=== PATIENT | male | born 1965 | race Caucasian/White ===

== ENCOUNTER 2017-07-27 07:31 | Day surgery (SDC) | payer OTHER ==
[~2017-07-27] VITALS: Ht 180.3 cm; Wt 142.5 kg
[~2017-07-27 07:31] MED LIST: ABAC300; ALPR.5 PO; AMLO10 PO; AMLO5; AMLODIPINE; AMOX500 PO; ANCEF 1 GM1 GM/50 ML IV; ASPI81CH PO; ASPIRIN; ATEN25 PO; ATEN50 PO; CEPH250A PO; CEPH500 PO; CLON.1 PO; CVS DISPOSABLE399 ML; ENEMA BOTTLE1 EACH MC; GABA300 PO; GLIM4 PO; GLYB2.5 PO; GLYBURIDE; GLYCAS PR; HYDACE10B PO; HYDACE5 PO; HYDR1TAB94 PO; IBUP600 PO; INSDET100 SC; INSUASPI; Ipratr-Albuterol3 ML IH; LAVAP17G PO; LISHYD2025 PO; LISI20 PO; LISINOPRIL/HCTZ; LORTAB 5-325 M1 EACH PO; MECLIZINE; MELA3 PO; METF500 PO; METFORMIN; METO50 PO; METO5A PO; METOPROLOL; Milk Of Ma400 MG/5 M PO; NICO21TP TOP; NYST100TC TOP; OLME20 PO; OMEPRAZOLE; Omeprazole20 M1 PO; PENVK500 PO; PRAV20 PO; PRAVASTATIN; PRED10 PO; QUIN5; Rocephin 1g1 G/50 ML IV; SACC250C PO; SITA25T2 PO; SULTRIDS PO; TAMS.4ER PO; UNKNOWN BP MED; Vibramycin100 MG PO
== END 2017-07-27 11:19 | disposition home or self-care (01) ==
LOC: ORSCSDS 07:31
DX: K21.9 Gastro-esophageal reflux disease without esophagitis (principal); K29.70 Gastritis, unspecified, without bleeding; K44.9 Diaphragmatic hernia without obstruction or gangrene; Z12.11 Encounter for screening for malignant neoplasm of colon; K57.30 Diverticulosis of large intestine without perforation or abscess without bleeding; K64.8 Other hemorrhoids; I10 Essential (primary) hypertension; G47.33 Obstructive sleep apnea (adult) (pediatric); F17.210 Nicotine dependence, cigarettes, uncomplicated; E11.9 Type 2 diabetes mellitus without complications; G61.0 Guillain-Barre syndrome; E78.5 Hyperlipidemia, unspecified; E66.01 Morbid (severe) obesity due to excess calories; Z68.41 Body mass index [BMI] 40.0-44.9, adult; Z79.899 Other long term (current) drug therapy; Z79.82 Long term (current) use of aspirin
CPT/HCPCS: 82947; 87070; 88305; 88342; J7120

== ENCOUNTER 2018-09-27 02:50 | Day surgery (SDC) | payer OTHER | END 2018-09-27 23:42 | disposition home or self-care (01) | LOC: WOUND 02:50 | PROC: 0HDMXZZ Extraction of Right Foot Skin, External Approach (ICD-10-PCS; principal; 2018-09-27) | DX: L89.893 Pressure ulcer of other site, stage 3 (principal); L89.892 Pressure ulcer of other site, stage 2; I10 Essential (primary) hypertension; G61.0 Guillain-Barre syndrome; F17.210 Nicotine dependence, cigarettes, uncomplicated; J45.909 Unspecified asthma, uncomplicated; Z86.14 Personal history of Methicillin resistant Staphylococcus aureus infection | CPT/HCPCS: G0463 ==

== ENCOUNTER 2018-10-04 02:51 | Day surgery (SDC) | payer OTHER | END 2018-10-04 22:57 | disposition home or self-care (01) | LOC: WOUND 02:51 | DX: L89.893 Pressure ulcer of other site, stage 3 (principal); E11.21 Type 2 diabetes mellitus with diabetic nephropathy; Z72.0 Tobacco use | CPT/HCPCS: G0463 ==

== ENCOUNTER 2018-10-11 02:20 | Day surgery (SDC) | payer OTHER | END 2018-10-11 23:23 | disposition home or self-care (01) | LOC: WOUND 02:20 | DX: L89.893 Pressure ulcer of other site, stage 3 (principal); E11.21 Type 2 diabetes mellitus with diabetic nephropathy; I10 Essential (primary) hypertension; J45.909 Unspecified asthma, uncomplicated; F17.210 Nicotine dependence, cigarettes, uncomplicated; Z86.19 Personal history of other infectious and parasitic diseases; Z86.14 Personal history of Methicillin resistant Staphylococcus aureus infection | CPT/HCPCS: G0463 ==

== ENCOUNTER 2018-10-18 10:43 | Day surgery (SDC) | payer OTHER | END 2018-10-18 23:13 | disposition home or self-care (01) | LOC: WOUND 10:43 | DX: L89.893 Pressure ulcer of other site, stage 3 (principal); E11.21 Type 2 diabetes mellitus with diabetic nephropathy; I10 Essential (primary) hypertension; J45.909 Unspecified asthma, uncomplicated; F17.210 Nicotine dependence, cigarettes, uncomplicated | CPT/HCPCS: G0463 ==

== ENCOUNTER → 2018-12-13 | Outpatient (CLI) | payer OTHER | END | disposition home or self-care (01) | LOC: PLD 07:32 → LAB SHORT 07:32 | DX: C44.311 Basal cell carcinoma of skin of nose (principal) | CPT/HCPCS: 88305 ==

== ENCOUNTER 2019-03-27 09:31 | Inpatient (IN) | payer OTHER ==
[~2019-03-27] VITALS: Ht 180.3 cm; Wt 127.5 kg
[~2019-03-27 09:31] MED LIST changes: -ALBU2.5V5 INH; -ALBU90OI INH; -ALLO100 PO; -BASAGLAR K100 UNIT/1 SC; -BISA10S PR; -BUSP5 PO; -COLCHICINE0.6 MG PO; -Ceftriaxon2 GM/50 ML IV; -DOCU100 PO; -ENOX40I SC; -FAMO20 PO; -Flonase 0.05% N16 GM; -Flovent Diskus50 MCG; -Glyburide5 MG PO; -HYDMOR2 PO; -MELATONIN5 M1 PO; -METO5A PO; -MILK OF MA400 MG/5 M PO; -NYSTRITC TOP; -Naloxone H0.4 MG/11 IV; -ONDA4ODT MM; -POLYETHYLENE G500 G1 PO; -SENN187 PO; -SLEEP PO; -TAMSULOSIN HCL0.4 M1 PO; -Zantac150 MG PO
[2019-03-27] MEDS ORDERED: AMLO10 PO (09:47)
[2019-03-27 10:33] LABS: BASOPHILS ABSOLUTE AUTO 0.04 K/mm3 (0.00-0.23); BASOPHILS PERCENT AUTO 0 % (0-2); EOSINOPHILS ABSOLUTE AUTO 0.17 K/mm3 (0.00-0.68); EOSINOPHILS PERCENT AUTO 2 % (0-6); Hematocrit 41.4 % (37.0-53.0); Hemoglobin 13.8 g/dL (13.5-17.5); IMMATURE GRAN PERCENT AUTO 1 % (0-1); LYMPHOCYTES ABSOLUTE AUTO 1.02 K/mm3 (0.84-5.20); LYMPHOCYTES PERCENT AUTO 10 % (21-46); MONOCYTES ABSOLUTE AUTO 0.65 K/mm3 (0.16-1.47); MONOCYTES PERCENT AUTO 7 % (4-13); Mean Corpuscular HGB 26.5 pg (26.0-34.0); Mean Corpuscular HGB Conc 33.3 g/dL (31.5-36.5); Mean Corpuscular Volume 80 fL (80-100); Mean Platelet Volume 9.8 fL (9.1-12.4); NEUTROPHILS PERCENT AUTO 80 % (41-73); Platelet Count 239 K/mm3 (150-400); RDW Coefficient Variation 14.2 % (11.7-14.2); RDW Standard Deviation 41.1 fL (35.1-46.3); White Blood Cell Count 9.78 K/mm3 (4.00-11.30)
[2019-03-27 10:46] LABS: International Normalized Ratio 1.04; Prothrombin Time Results 11.1 Sec (9.7-11.5)
[2019-03-27 10:50] LABS: Anion Gap 9 mmol/L (6-16); Blood Urea Nitrogen 24 mg/dL (8-24); Bun/Creatinine Ratio 19.7 (12.0-20.0); CO2, Blood 24 mmol/L (21-32); Calcium, Blood 9.1 mg/dL (8.5-10.1); Chloride, Blood 97 mmol/L (98-108); Creatinine, Blood 1.22 mg/dL (0.60-1.20); Glomerular Filtration Rate >60 (60-); Glucose, Blood 191 mg/dL (70-99); Sodium, Blood 130 mmol/L (136-145)
[2019-03-27 11:27] LABS: Source, Urine Clean Catch
[2019-03-27 11:52] LABS: Bilirubin, Urine Neg (Neg); Blood, Urine Neg (Neg); Glucose Qualitative, Urine 1+ (Neg); Ketones, Urine 1+ (Neg); Leukocyte Esterase, Urine 3+ (Neg); Nitrite, Urine Neg (Neg); Protein, Urine Neg (Neg); Specific Gravity, Urine 1.015 (1.003-1.022); Urobilinogen, Urine NORM (Normal)
[2019-03-27 11:58] LABS: Appearance, Urine Clear (Clear); Color, Urine Yellow (P-Yellow)
[2019-03-27 11:59] LABS: White Blood Cells, Urine 25-50 /hpf (0-5)
[2019-03-27] MEDS ORDERED: BUSP5 PO (12:01)
[2019-03-27] MEDS ORDERED: COLCHICINE0.6 MG PO (12:01)
[2019-03-27 12:02] LABS: Bacteria Few /hpf; Red Blood Cells, Urine 0-2 /hpf (0-2); Squamous Epithelial Cells Few /hpf (Few)
[2019-03-27] MEDS ORDERED: METO5A PO (13:09)
[2019-03-27] MEDS ORDERED: TAMSULOSIN HCL0.4 M1 PO (13:10)
[2019-03-27] MEDS ORDERED: Zantac150 MG PO (13:12)
[2019-03-27] MEDS ORDERED: ALLO100 PO (13:13)
[2019-03-27] MEDS ORDERED: Glyburide5 MG PO (13:15)
[2019-03-27] MEDS ORDERED: ALBU90OI INH (16:09)
[2019-03-27] MEDS ORDERED: ALBU2.5V5 INH (16:09)
[2019-03-27] MEDS ORDERED: FAMO20 PO (16:09)
[2019-03-27] MEDS ORDERED: Flovent Diskus50 MCG (16:10)
[2019-03-27] MEDS ORDERED: NYSTRITC TOP (16:11)
[2019-03-27] MEDS ORDERED: SLEEP PO (16:11)
--- NOTE | 2019-03-27 16:19 | NUR ---
IN TO SEE PATIENT
--- NOTE | 2019-03-27 18:52 | NUR ---
ARRIVES TO FLOOR ABOUT 1530. PIC OF WOUND TAKEN AND MEPILEX USED TO COVER. SAW PATIENT TODAY AND ADVISED PATIENT OF AMPUTATION. PODIATRY TO BE CALLED TOMORROW. WILL PLACE PATIENT NPO AND MAKE RN AWARE FOR POSSIBLE PROCEDURE. ALERT. ORIENTED. PLEASANT. COOPERATIVE. UNLABORED RESPIRATIONS. REPORT TO FLEIPE VU
--- NOTE | 2019-03-28 04:39 | NUR ---
SHIFT SUMMARY ADMITTED FOR OSEOMYELITIS OF 5TH METATARSAL OF RT FOOT. FULL CODE. HOPEFUL PLAN FOR PODIATRY CONSULT/SURGICAL PROCEDURE FOR TODAY. PT HAS BEEN NPO SINCE MIDNIGHT. USES CPAP @ PM. A&O X4. ACHS, TEST HS @ 10 PM, LOW SS. RA DURING DAY. SECONDARY DX FOR UTI. HX: DM2, NEUROPATHY, GUILLAIN-BAR SYNDROME, GOUT, HTN, ASTHMA, BPH, NEUROGENIC BLADDER. BILAT CHRONIC ANKLE BRACES FOR AMBULATION.
[2019-03-28 05:51] LABS: Anion Gap 8 mmol/L (6-16); Blood Urea Nitrogen 26 mg/dL (8-24); Bun/Creatinine Ratio 20.2 (12.0-20.0); CO2, Blood 24 mmol/L (21-32); Calcium, Blood 9.2 mg/dL (8.5-10.1); Chloride, Blood 101 mmol/L (98-108); Creatinine, Blood 1.29 mg/dL (0.60-1.20); Glomerular Filtration Rate >60 (60-); Glucose, Blood 170 mg/dL (70-99); Sodium, Blood 133 mmol/L (136-145)
--- NOTE | 2019-03-28 09:45 | NUR ---
TALKED TO . STS WILL TAKE PATIENT TO OR THIS AFTERNOON. KEEP NPO. OK TO HAVE MORNING MEDS.
--- NOTE | 2019-03-28 11:30 | NUR ---
PER CHANGE SLIDING SCALE TO MEDIUM AND GIVE FOR LUNCH.
--- NOTE | 2019-03-28 13:06 | NUR ---
Upon receiving an admit referral, I visit patient. Patient is lying in bed and alert. Patient immediately tells me his frustration with the ambulance company who was no longer able to take him to his doctor's appointments and now he is fearful that he may have his foot amputated. Once off this topic patient settled down quickly and began to tell me about his Gnosticist matthew and the support system that his faith has. Patient explains about the many medical issues he has throughout his life. Patient states that he has been up most of the night stressing about losing his foot. I listen empathically, normalize patient's experience, reinforce helpful attitudes and practices, recite inspirational scriptures and provide emotional support, pastoral clinical mental health counselor and prayer. Patient responds well and shows signs of increased peace. I will continue to remain available to patient and family.
--- NOTE | 2019-03-28 13:27 | NUR ---
TO OR. IN GOWN. USED URINAL.
--- NOTE | 2019-03-28 13:36 | NUR ---
History, Chart, Medications and Allergies reviewed before start of procedure. Patient confirms NPO status and agrees with scheduled surgery. Lungs clear T/O to Auscultation. Pre-Op teaching done. Pt verbalizes understanding. NO JEWELRY OR PIERCINGS PRESENT AT ADMIT, GLASSES IN PLACE ON PATIENT.
--- NOTE | 2019-03-28 13:48 | NUR ---
IV DOES NOT RUN TO GRAVITY, WILL START NEW IV.
--- NOTE | 2019-03-28 14:18 | NUR ---
TOOK OVER PATIENT CARE, STARTED IV, TOOK PATIENTTO SURGERY.
--- NOTE | 2019-03-28 19:10 | NUR ---
PATIENT BACK TO ROOM ABOUT 1600. ALERT. ORIENTED. RT FOOT WRAPPED IN JASS WRAP WITH NO OBVIOUS DRAINAGE. ADVISED NONWEIGHT BEARING. CBG TAKEN. FOOD GIVEN. GOOD APPETITE. VSWNL. REPORT TO NIGHT RN
--- NOTE | 2019-03-29 00:01 | NUR ---
BEGINNING SHIFT SUMMARY ASSUMED CARE OF PT AT 1900. PT IS ALERT AND ORIENTED X4, PT STATES THAT HIS LOWER EXTREMITES ARE NUMB. HEART SOUNDS REGULAR, LUNG SOUNDS CLEAR, DENIES CP/SOB/DYSPNEA AT THIS TIME. PT R FOOT IS BANDAGED AND IS C/D/I, PT IS NON WEIGHTBEARING ON THE FOOT TILL DOCTOR SEES HIM TOMORROW. PT C/O PAIN IN HIS FOOT, MEDICATED PER EMAR. PT HAS FREQUENT URINATION WITH LITTLE OUTPUT, PT STATES THAT HE FEELS THAT HE IS EMPTYING JUST FINE, IT JUST TAKES HIM A COUPLE TIMES. CALL LIGHT IN REACH, BED IN LOWEST POSTION, WILL CONTINUE TO MONITOR.
--- NOTE | 2019-03-29 04:21 | NUR ---
END SHIFT SUMMARY NO ACUTE CHANGES NOTED T/O THE NIGHT. PT SLEPT MOST OF THE NIGHT EXCEPT TO USE THE URINAL. PT C/O PAIN IN HIS FOOT, MEDICATED PER EMAR. CALL LIGHT IN REACH, BED IN LOWEST POSTION, WILL CONTINUE TO MONITOR UNTIL DAYSHIFT NURSE ARRIVES.
[2019-03-29 05:48] LABS: Anion Gap 9 mmol/L (6-16); Blood Urea Nitrogen 31 mg/dL (8-24); Bun/Creatinine Ratio 23.7 (12.0-20.0); CO2, Blood 22 mmol/L (21-32); Calcium, Blood 9.2 mg/dL (8.5-10.1); Chloride, Blood 101 mmol/L (98-108); Creatinine, Blood 1.31 mg/dL (0.60-1.20); Glomerular Filtration Rate >60 (60-); Glucose, Blood 210 mg/dL (70-99); Potassium, Blood 4.4 mmol/L (3.5-5.5); Sodium, Blood 132 mmol/L (136-145)
[2019-03-29 12:56] LABS: Source, Urine Clean Catch
[2019-03-29 13:07] LABS: Appearance, Urine Clear (Clear); Bilirubin, Urine Neg (Neg); Blood, Urine Neg (Neg); Color, Urine Yellow (P-Yellow); Glucose Qualitative, Urine 3+ (Neg); Ketones, Urine Neg (Neg); Leukocyte Esterase, Urine 1+ (Neg); Nitrite, Urine Neg (Neg); Protein, Urine Neg (Neg); Urobilinogen, Urine NORM (Normal); pH, Urine 6.5 (5.0-8.0)
[2019-03-29 13:16] LABS: Bacteria Rare /hpf; Red Blood Cells, Urine 0-2 /hpf (0-2); Squamous Epithelial Cells Rare /hpf (Few)
[2019-03-29 14:52] LABS: BASOPHILS ABSOLUTE AUTO 0.04 K/mm3 (0.00-0.23); BASOPHILS PERCENT AUTO 0 % (0-2); EOSINOPHILS ABSOLUTE AUTO 0.07 K/mm3 (0.00-0.68); EOSINOPHILS PERCENT AUTO 1 % (0-6); Hematocrit 41.1 % (37.0-53.0); Hemoglobin 13.6 g/dL (13.5-17.5); IMMATURE GRAN ABSOLUTE AUTO 0.09 K/mm3 (0.00-0.10); IMMATURE GRAN PERCENT AUTO 1 % (0-1); LYMPHOCYTES ABSOLUTE AUTO 1.91 K/mm3 (0.84-5.20); LYMPHOCYTES PERCENT AUTO 18 % (21-46); MONOCYTES ABSOLUTE AUTO 0.64 K/mm3 (0.16-1.47); MONOCYTES PERCENT AUTO 6 % (4-13); Mean Corpuscular HGB 26.6 pg (26.0-34.0); Mean Corpuscular HGB Conc 33.1 g/dL (31.5-36.5); Mean Corpuscular Volume 80 fL (80-100); NEUTROPHILS ABSOLUTE AUTO 7.73 K/mm3 (1.96-9.15); NEUTROPHILS PERCENT AUTO 74 % (41-73); Platelet Count 305 K/mm3 (150-400); RDW Coefficient Variation 14.1 % (11.7-14.2); RDW Standard Deviation 40.9 fL (35.1-46.3); Red Blood Cell Count 5.12 M/mm3 (4.30-5.90); White Blood Cell Count 10.48 K/mm3 (4.00-11.30)
--- NOTE | 2019-03-29 18:01 | NUR ---
SHIFT SUMMARY- PT A/O, PLESANT AND COOPERATIVE. PT RECIEVING IV ANTIBIOTICS. PT EATING AND DRINKING WELL. HE WORKED WITH PHYSICAL THERAPY TODAY AND TOLERATED WELL. BLOOD GLUCOSE LEVELS ELEVATED COVERED PER MAR. PT RECIEVING TREATMENT FROM RT.
--- NOTE | 2019-03-29 22:44 | NUR ---
CALL TO HOSPITALIST MED ERROR - FOUR UNITS OF HUMALOG GIVEN INSTEAD OF OREDERED TWO UNITS BY MISTAKE. NOTIFIED DR. MORALES, STATED TO RECHECK BS IN TWO HOURS.
--- NOTE | 2019-03-29 23:09 | NUR ---
BEGINNING SHIFT SUMMARY ASSUMED CARE OF PT AT 1900. PT WAS LYING IN BED WATCHING TV. PT A/O X4, DENIES N/T AT THIS TIME. HEART SOUNDS REGULAR, LUNG SOUNDS DIMINISHED, DENIES SOB AT THIS TIME. PT C/O BURNING WHEN HE TRIES TO URINATE AND NOTHING COMES OUT. FOOT WOUND DRESSING C/D/I. PT C/O PAIN IN THE FOOT, MEDICATED PER EMAR. PT IS CURRENTLY SLEEPING WITH HIS CPAP ON WITH CONTINOUS BIOX. CALL LIGHT IN REACH, BED IN LOWEST POSTION, WILL CONTINUE TO MONITOR.
--- NOTE | 2019-03-30 04:09 | NUR ---
END SHIFT SUMMARY PT AWOKE DURING VITALS WITH EXTREME PAIN IN HIS FOOT, MEDICATED PER EMAR. PT SLEPT MOST OF THE NIGHT. CALL ILGHT IN REACH, BED IN LOWEST POSTION, WILL CONTINUE TO MONITOR UNTIL DAYSHIFT NURSE ARRIVES.
[2019-03-30 05:50] LABS: Anion Gap 8 mmol/L (6-16); Blood Urea Nitrogen 33 mg/dL (8-24); Bun/Creatinine Ratio 25.2 (12.0-20.0); CO2, Blood 25 mmol/L (21-32); Calcium, Blood 9.1 mg/dL (8.5-10.1); Chloride, Blood 102 mmol/L (98-108); Creatinine, Blood 1.31 mg/dL (0.60-1.20); Glomerular Filtration Rate >60 (60-); Glucose, Blood 237 mg/dL (70-99); Potassium, Blood 4.3 mmol/L (3.5-5.5); Sodium, Blood 135 mmol/L (136-145)
--- NOTE | 2019-03-30 18:36 | NUR ---
SHIFT SUMMARY- PT A/O PLESANT AND COOPERATIVE. PT IS EATING AND DRINKING WELL. HE IS USING THE URINAL AT BEDSIDE. PT RECIEVED A BED BATH TODAY. HE IS HAVING SOME PAIN IN THE FOOT AND IS RECIEVING PAIN MEDICATION PER MAR. POSSIBLE DISCHARHGE TO SNF.
--- NOTE | 2019-03-30 23:10 | NUR ---
BEGINNING SHIFT SUMMARY ASSUMED CARE OF PT AT 1900. PT WAS SITTING IN BED WATCHING TV. PT OS ALERT AND ORIENTED, C/O NUMBNESS IN EXTREMITIES, HX GULLIAN BARRE DISEASE. HEART SOUNDS REGULAR, LUNG SOUNDS CLEAR, WEARS CPAP AT NIGHT. PT C/O PAIN IN R FOOT, MEDICATED PER EMAR. PT IS CURRENTLY SLEEPING WITH CPAP ON. CALL LIGHT IN REACH, BED IN LOWEST POSTION, WILL CONTINUE TO MONITOR.
--- NOTE | 2019-03-31 04:36 | NUR ---
END SHIFT SUMMARY NO ACUTE CHANGES NOTED T/O THE NIGHT. PT SLEPT TH/O THE NIGHT UNTIL 0430 WHEN HE AWOKE TO URINATE AND BECAUSE OF THE PAIN IN HIS FOOT. PT IS CURRENTLY BACK TO SLEEP. CALL LIGHT IN REACH, BED IN LOWEST POSTION, WILL CONTINUE TO MONITOR UNTIL DAYSHIFT NURSE ARRIVES.
[2019-03-31 05:52] LABS: Anion Gap 10 mmol/L (6-16); Blood Urea Nitrogen 36 mg/dL (8-24); CO2, Blood 20 mmol/L (21-32); Chloride, Blood 102 mmol/L (98-108); Creatinine, Blood 1.09 mg/dL (0.60-1.20); Glomerular Filtration Rate >60 (60-); Glucose, Blood 284 mg/dL (70-99); Potassium, Blood 4.5 mmol/L (3.5-5.5); Sodium, Blood 132 mmol/L (136-145)
[2019-03-31] MEDS ORDERED: Flonase 0.05% N16 GM (13:33)
[2019-03-31] MEDS ORDERED: BASAGLAR K100 UNIT/1 SC (13:35)
[2019-03-31] MEDS ORDERED: BISA10S PR (13:42)
[2019-03-31] MEDS ORDERED: DOCU100 PO (13:43)
[2019-03-31] MEDS ORDERED: Ceftriaxon2 GM/50 ML IV (13:43)
[2019-03-31] MEDS ORDERED: ENOX40I SC (13:44)
[2019-03-31] MEDS ORDERED: HYDMOR2 PO (13:45)
[2019-03-31] MEDS ORDERED: MILK OF MA400 MG/5 M PO (13:46)
[2019-03-31] MEDS ORDERED: MELATONIN5 M1 PO (13:47)
[2019-03-31] MEDS ORDERED: Naloxone H0.4 MG/11 IV (13:48)
[2019-03-31] MEDS ORDERED: ONDA4ODT MM (13:49)
[2019-03-31] MEDS ORDERED: POLYETHYLENE G500 G1 PO (13:50)
[2019-03-31] MEDS ORDERED: SENN187 PO (13:51)
--- NOTE | 2019-03-31 17:01 | NUR ---
SHIFT SUMMARY PT RESTING QUIETLY ON CPAP DURING SHIFT REPORT, CONT BIOX WNL'S. PER REPORT, PT HAD JUST GONE TO SLEEP AND PT REPORTED LATER THAT HE HAD NOT GOTTEN MUCH SLEEP LAST NIGHT. PT WITH JASS WRAP TO RLE; C/D/I. PER REPORT, PT HAD I&D ON 5TH TOE, PRESENTLY NONWT BEARING ON R FOOT. MEDICATED PER EMAR NEEDED FOR PAIN. USING URINAL AT , VOIDING WELL. DR ODONNELL IN TO SEE PT; D/C ORDERS PLACED. PT TO GO TO FOR REHAB. PT TO RECEIVE IV ABX PER ORDERS AND F/U WITH PODIATRY; DR SCHOFIELD. REPORT CALLED TO LISA VU AT @ 1620. PT MEDICATED FOR PAIN PRIOR TO D/C.
== END 2019-03-31 16:13 | DRG 629 ==
LOC: ER 09:31 → MEDS 13:50
PROVIDERS: Emergency Medicine; Internal Medicine; Podiatrist Foot & Ankle Surgery; ADMIT Internal Medicine Endocrinology, Diabetes & Metabolism
PROC: 3E0V329 Introduction of Other Anti-infective into Bones, Percutaneous Approach (ICD-10-PCS; 2019-03-28)
PROC: 0QBN0ZZ Excision of Right Metatarsal, Open Approach (ICD-10-PCS; principal; 2019-03-28 13:45)
DX: E11.621 Type 2 diabetes mellitus with foot ulcer (principal); M86.171 Other acute osteomyelitis, right ankle and foot; L03.115 Cellulitis of right lower limb; E87.1 Hypo-osmolality and hyponatremia; G61.0 Guillain-Barre syndrome; N13.8 Other obstructive and reflux uropathy; E11.69 Type 2 diabetes mellitus with other specified complication; B95.4 Other streptococcus as the cause of diseases classified elsewhere; B96.89 Other specified bacterial agents as the cause of diseases classified elsewhere; Z79.4 Long term (current) use of insulin; E11.22 Type 2 diabetes mellitus with diabetic chronic kidney disease; I12.9 Hypertensive chronic kidney disease with stage 1 through stage 4 chronic kidney disease, or unspecified chronic kidney disease; N18.3 Chronic kidney disease, stage 3 (moderate); G47.33 Obstructive sleep apnea (adult) (pediatric); M10.9 Gout, unspecified; E66.9 Obesity, unspecified; N40.1 Benign prostatic hyperplasia with lower urinary tract symptoms; R33.8 Other retention of urine; N52.9 Male erectile dysfunction, unspecified; Z68.38 Body mass index [BMI] 38.0-38.9, adult; E11.65 Type 2 diabetes mellitus with hyperglycemia; E11.51 Type 2 diabetes mellitus with diabetic peripheral angiopathy without gangrene
CPT/HCPCS: 36415; 73701; 80048; 81001; 82947; 83605; 85025; 85610; 87040; 87070; 87071; 87075; 87077; 87081; 87086; 87186; 87205; 88304; 94660; 94762; 96361; 96365-59; 96375-59; 97162; 97166; 97530; 99284-25; C1713; J0696; J1100; J1170; J1650; J1815; J1956; J2001; J2250; J2370; J2405; J2543; J2704; J2710; J3010; J7030; J7050; J7120; Q0163; Q9967

== ENCOUNTER → 2019-03-27 | Outpatient (CLI) | payer OTHER ==
[~2019-03-27] MED LIST changes: +ALBU2.5V5 INH; +ALBU90OI INH; +ALLO100 PO; +Augmentin 875-1 EACH PO; +BASAGLAR K100 UNIT/1 SC; +BASAGLAR K100 UNIT/2 SC; +BISA10S PR; +BUSP5 PO; +COLCHICINE0.6 MG PO; +Ceftriaxon2 GM/50 ML IV; +DOCU100 PO; +ENOX40I SC; +FAMO20 PO; +Flonase 0.05% N16 GM; +Flovent Diskus50 MCG; +Glyburide5 MG PO; +HYDMOR2 PO; -INSDET100 SC; -INSUASPI; +MELATONIN5 M1 PO; +METO100 PO; -METO50 PO; +MILK OF MA400 MG/5 M PO; +Metformin HCl1000 MG PO; +NOVOLOG FL100 UNIT/1 SC; +NYSTRITC TOP; +Naloxone H0.4 MG/11 IV; +OMEPRAZOLE MAGN20 M1 PO; +ONDA4ODT MM; -Omeprazole20 M1 PO; +POLYETHYLENE G500 G1 PO; +Pravachol40 MG PO; +SENN187 PO; +SLEEP PO; +TAMSULOSIN HCL0.4 M1 PO; +ZESTORETIC 20-1 EAC1 PO; +Zantac150 MG PO
== END | disposition home or self-care (01) ==
LOC: LAB 10:34 → LAB SHORT 10:34
DX: E11.49 Type 2 diabetes mellitus with other diabetic neurological complication (principal); L03.119 Cellulitis of unspecified part of limb
CPT/HCPCS: 87070; 87075; 87076; 87077; 87185; 87186; 87205

== ENCOUNTER 2019-04-18 02:25 | Day surgery (SDC) | payer OTHER ==
[~2019-04-18 02:25] MED LIST changes: +ALBU2.5V5 INH; +ALBU90OI INH; +ALLO100 PO; +BASAGLAR K100 UNIT/1 SC; +BISA10S PR; +BUSP5 PO; +COLCHICINE0.6 MG PO; +Ceftriaxon2 GM/50 ML IV; +DOCU100 PO; +ENOX40I SC; +FAMO20 PO; +Flonase 0.05% N16 GM; +Flovent Diskus50 MCG; +Glyburide5 MG PO; +HYDMOR2 PO; +MELATONIN5 M1 PO; +METO5A PO; +MILK OF MA400 MG/5 M PO; +NYSTRITC TOP; +Naloxone H0.4 MG/11 IV; +ONDA4ODT MM; +POLYETHYLENE G500 G1 PO; +SENN187 PO; +SLEEP PO; +TAMSULOSIN HCL0.4 M1 PO; +Zantac150 MG PO
== END 2019-04-18 23:37 | disposition home or self-care (01) ==
LOC: WOUND 02:25
DX: E11.621 Type 2 diabetes mellitus with foot ulcer (principal); E11.65 Type 2 diabetes mellitus with hyperglycemia; L97.515 Non-pressure chronic ulcer of other part of right foot with muscle involvement without evidence of necrosis; I10 Essential (primary) hypertension; F17.210 Nicotine dependence, cigarettes, uncomplicated; J45.909 Unspecified asthma, uncomplicated; Z71.6 Tobacco abuse counseling; Z91.013 Allergy to seafood; Z79.899 Other long term (current) drug therapy; Z79.84 Long term (current) use of oral hypoglycemic drugs
CPT/HCPCS: G0463

== ENCOUNTER 2019-04-24 00:25 | Day surgery (SDC) | payer OTHER | END 2019-04-24 23:10 | disposition home or self-care (01) | LOC: WOUND 00:25 | DX: E11.621 Type 2 diabetes mellitus with foot ulcer (principal); E11.65 Type 2 diabetes mellitus with hyperglycemia; L97.515 Non-pressure chronic ulcer of other part of right foot with muscle involvement without evidence of necrosis; I10 Essential (primary) hypertension; J45.909 Unspecified asthma, uncomplicated; F17.210 Nicotine dependence, cigarettes, uncomplicated; Z71.6 Tobacco abuse counseling; Z79.899 Other long term (current) drug therapy; Z79.4 Long term (current) use of insulin | CPT/HCPCS: 87070; 87075; 87077; 87147; 87186; 87205 ==

== ENCOUNTER → 2019-04-28 | Day surgery (SDC) | payer OTHER ==
[~2019-04-28] MED LIST changes: +XARELTO20 MG PO
== END ==
LOC: WOUND 00:18
DX: E11.621 Type 2 diabetes mellitus with foot ulcer (principal); J45.909 Unspecified asthma, uncomplicated; F17.210 Nicotine dependence, cigarettes, uncomplicated; L97.515 Non-pressure chronic ulcer of other part of right foot with muscle involvement without evidence of necrosis; M86.672 Other chronic osteomyelitis, left ankle and foot; E11.65 Type 2 diabetes mellitus with hyperglycemia; Z79.899 Other long term (current) drug therapy; Z79.84 Long term (current) use of oral hypoglycemic drugs

== ENCOUNTER 2019-04-29 00:08 | Day surgery (SDC) | payer OTHER ==
[~2019-04-29 00:08] MED LIST changes: -XARELTO20 MG PO
[2019-04-29] MEDS ORDERED: XARELTO20 MG PO (17:25)
--- NOTE | 2019-04-29 17:55 | NUR ---
PT SENT TO LUNCH @ 1135, TO RETURN AFTERNOON FOR PICC PLACEMENT TO [facility]. PT RETURNED AND ATTEMPT TO LUE START 1445, STOP TIME 1530. AFTER INTRODUCER PLACED, NOT ABLE TO REMOVE GUIDEWIRE TO ADVANCE LINE. EVENTUALLY GUIDEWIRE WAS REMOVED AND WAS "PIG-TAIL". 2X2 GAUZE DRESSING AND WINDOW DRESSING PLACED. PT UP IN W/C AND OUT FOR COFFEE. CUSTOMER INSIGHT ANALYST TATO WEINSTEIN TO PLACE POWERGLIDE. SEE POWERGLIDE RECORD. PT DISCHARED, CALL TO [employer] FOR CASE PACKER. KALLIE NOTIFIED. PT LEFT IN STABLE CONDITION VIA W/C.
== END 2019-04-29 16:15 | disposition home or self-care (01) ==
LOC: ATC 00:08
DX: E11.621 Type 2 diabetes mellitus with foot ulcer (principal); L97.515 Non-pressure chronic ulcer of other part of right foot with muscle involvement without evidence of necrosis; E11.65 Type 2 diabetes mellitus with hyperglycemia; Z71.6 Tobacco abuse counseling
CPT/HCPCS: 36569; C1751

== ENCOUNTER 2019-05-05 00:12 | Day surgery (SDC) | payer OTHER ==
[~2019-05-05 00:12] MED LIST changes: +XARELTO20 MG PO
== END 2019-05-05 23:30 | disposition home or self-care (01) ==
LOC: WOUND 00:12
DX: E11.621 Type 2 diabetes mellitus with foot ulcer (principal); E11.65 Type 2 diabetes mellitus with hyperglycemia; L97.515 Non-pressure chronic ulcer of other part of right foot with muscle involvement without evidence of necrosis; M86.672 Other chronic osteomyelitis, left ankle and foot; F17.210 Nicotine dependence, cigarettes, uncomplicated; I10 Essential (primary) hypertension; J45.909 Unspecified asthma, uncomplicated; Z71.6 Tobacco abuse counseling; Z79.4 Long term (current) use of insulin; Z79.899 Other long term (current) drug therapy; Z79.01 Long term (current) use of anticoagulants

== ENCOUNTER 2019-05-12 00:37 | Day surgery (SDC) | payer OTHER | END 2019-05-12 22:47 | disposition home or self-care (01) | LOC: WOUND 00:37 | DX: E11.621 Type 2 diabetes mellitus with foot ulcer (principal); E11.65 Type 2 diabetes mellitus with hyperglycemia; L97.515 Non-pressure chronic ulcer of other part of right foot with muscle involvement without evidence of necrosis; I10 Essential (primary) hypertension; F17.210 Nicotine dependence, cigarettes, uncomplicated; J45.909 Unspecified asthma, uncomplicated; M86.672 Other chronic osteomyelitis, left ankle and foot; Z79.4 Long term (current) use of insulin; Z79.899 Other long term (current) drug therapy; Z79.01 Long term (current) use of anticoagulants | CPT/HCPCS: 87070; 87075; 87076; 87077; 87185; 87186; 87205 ==

== ENCOUNTER 2019-05-22 00:30 | Day surgery (SDC) | payer OTHER | END 2019-05-22 22:53 | disposition home or self-care (01) | LOC: WOUND 00:30 | DX: E11.621 Type 2 diabetes mellitus with foot ulcer (principal); L97.512 Non-pressure chronic ulcer of other part of right foot with fat layer exposed; E11.65 Type 2 diabetes mellitus with hyperglycemia; E11.69 Type 2 diabetes mellitus with other specified complication; M86.672 Other chronic osteomyelitis, left ankle and foot; I10 Essential (primary) hypertension; F17.210 Nicotine dependence, cigarettes, uncomplicated ==

== ENCOUNTER 2019-05-26 00:31 | Day surgery (SDC) | payer OTHER | END 2019-05-26 22:50 | disposition home or self-care (01) | LOC: WOUND 00:31 | DX: E11.621 Type 2 diabetes mellitus with foot ulcer (principal); L97.515 Non-pressure chronic ulcer of other part of right foot with muscle involvement without evidence of necrosis; E11.65 Type 2 diabetes mellitus with hyperglycemia; F17.210 Nicotine dependence, cigarettes, uncomplicated ==

== ENCOUNTER 2019-05-26 09:20 | Day surgery (SDC) | payer OTHER | END 2019-05-26 22:50 | disposition home or self-care (01) | LOC: WOUND → HBO 09:20 | DX: E11.621 Type 2 diabetes mellitus with foot ulcer (principal); L97.515 Non-pressure chronic ulcer of other part of right foot with muscle involvement without evidence of necrosis; E11.65 Type 2 diabetes mellitus with hyperglycemia; I10 Essential (primary) hypertension; F17.210 Nicotine dependence, cigarettes, uncomplicated; Z86.14 Personal history of Methicillin resistant Staphylococcus aureus infection | CPT/HCPCS: 82947; G0277 ==

== ENCOUNTER 2019-05-27 07:40 | Day surgery (SDC) | payer OTHER | END 2019-05-27 22:50 | disposition home or self-care (01) | LOC: WOUND 07:40 → HBO 07:40 | DX: E11.621 Type 2 diabetes mellitus with foot ulcer (principal); L97.515 Non-pressure chronic ulcer of other part of right foot with muscle involvement without evidence of necrosis; E11.69 Type 2 diabetes mellitus with other specified complication; M86.672 Other chronic osteomyelitis, left ankle and foot; E11.65 Type 2 diabetes mellitus with hyperglycemia; F17.210 Nicotine dependence, cigarettes, uncomplicated | CPT/HCPCS: 82947; G0277 ==

== ENCOUNTER 2019-05-29 00:55 | Day surgery (SDC) | payer OTHER | END 2019-05-29 22:45 | disposition home or self-care (01) | LOC: HBO 00:55 | DX: E11.621 Type 2 diabetes mellitus with foot ulcer (principal); L97.515 Non-pressure chronic ulcer of other part of right foot with muscle involvement without evidence of necrosis; M86.672 Other chronic osteomyelitis, left ankle and foot; E11.65 Type 2 diabetes mellitus with hyperglycemia; F17.210 Nicotine dependence, cigarettes, uncomplicated; Z79.4 Long term (current) use of insulin; Z79.899 Other long term (current) drug therapy | CPT/HCPCS: 82947; G0277 ==

== ENCOUNTER 2019-07-22 09:54 | Inpatient (IN) | payer OTHER ==
[~2019-07-22] VITALS: Ht 182.9 cm; Wt 115.5 kg
[~2019-07-22 09:54] MED LIST changes: -BUSP5 PO; +Buspirone HCl15 MG PO
[2019-07-22 10:56] LABS: BASOPHILS ABSOLUTE AUTO 0.08 K/mm3 (0.00-0.23); BASOPHILS PERCENT AUTO 1 % (0-2); EOSINOPHILS PERCENT AUTO 2 % (0-6); Hematocrit 49.1 % (37.0-53.0); Hemoglobin 16.7 g/dL (13.5-17.5); IMMATURE GRAN ABSOLUTE AUTO 0.14 K/mm3 (0.00-0.10); IMMATURE GRAN PERCENT AUTO 1 % (0-1); LYMPHOCYTES ABSOLUTE AUTO 1.42 K/mm3 (0.84-5.20); LYMPHOCYTES PERCENT AUTO 12 % (21-46); MONOCYTES ABSOLUTE AUTO 0.82 K/mm3 (0.16-1.47); MONOCYTES PERCENT AUTO 7 % (4-13); Mean Corpuscular HGB 26.6 pg (26.0-34.0); Mean Corpuscular Volume 78 fL (80-100); Mean Platelet Volume 10.6 fL (9.1-12.4); NEUTROPHILS ABSOLUTE AUTO 9.42 K/mm3 (1.96-9.15); NEUTROPHILS PERCENT AUTO 78 % (41-73); Platelet Count 336 K/mm3 (150-400); RDW Coefficient Variation 13.6 % (11.7-14.2); RDW Standard Deviation 38.5 fL (35.1-46.3); Red Blood Cell Count 6.29 M/mm3 (4.30-5.90); White Blood Cell Count 12.08 K/mm3 (4.00-11.30)
[2019-07-22] MEDS ORDERED: HYDHCL25 PO (11:02)
[2019-07-22] MEDS ORDERED: TRIDERM454 GM TOP (11:03)
[2019-07-22 11:11] LABS: International Normalized Ratio 1.07; Prothrombin Time Results 11.4 Sec (9.7-11.5)
[2019-07-22 11:18] LABS: Bilirubin, Total 0.4 mg/dL (0.1-1.0); Bun/Creatinine Ratio 17.1 (12.0-20.0); Calcium, Blood 9.5 mg/dL (8.5-10.1); Creatinine, Blood 2.75 mg/dL (0.60-1.20); Potassium, Blood 4.5 mmol/L (3.5-5.5); Total Protein, Blood 9.6 g/dL (6.4-8.2)
[2019-07-22 11:33] LABS: Albumin, Blood 2.1 g/dL (3.4-5.0); Albumin/Globulin Ratio 0.3 (0.8-1.8); Globulin, Blood 7.5 g/dL (2.2-4.0)
--- NOTE | 2019-07-22 19:52 | NUR ---
PCU DAYSHIFT/ADMIT ORDER PATIENT ARRIVED VIA GURNEY FROM ER. TRANSFERED TO UNIT BED VIA 3 ASSIT. PATIENT DENIES ANY PAIN. RESP E/U ON ROOM AIR. HEART RATE NSR IN THE 70'S. VSS. CONSULT FOR PODIETRY CALLED TO MD WELDON. MD WELDON IN TO SEE PATIENT. PATIENT LEFT DEPARTMENT FOR MRI PER SHIRAZ. REPORTED TO NOC SHIFT RNFERNANDO.
[2019-07-23 03:49] LABS: BASOPHILS ABSOLUTE AUTO 0.06 K/mm3 (0.00-0.23); BASOPHILS PERCENT AUTO 1 % (0-2); EOSINOPHILS ABSOLUTE AUTO 0.31 K/mm3 (0.00-0.68); EOSINOPHILS PERCENT AUTO 3 % (0-6); Hematocrit 47.7 % (37.0-53.0); Hemoglobin 15.7 g/dL (13.5-17.5); IMMATURE GRAN ABSOLUTE AUTO 0.14 K/mm3 (0.00-0.10); IMMATURE GRAN PERCENT AUTO 1 % (0-1); LYMPHOCYTES ABSOLUTE AUTO 1.55 K/mm3 (0.84-5.20); LYMPHOCYTES PERCENT AUTO 14 % (21-46); MONOCYTES ABSOLUTE AUTO 0.79 K/mm3 (0.16-1.47); MONOCYTES PERCENT AUTO 7 % (4-13); Mean Corpuscular HGB 26.4 pg (26.0-34.0); Mean Corpuscular HGB Conc 32.9 g/dL (31.5-36.5); Mean Corpuscular Volume 80 fL (80-100); Mean Platelet Volume 10.1 fL (9.1-12.4); NEUTROPHILS ABSOLUTE AUTO 8.09 K/mm3 (1.96-9.15); NEUTROPHILS PERCENT AUTO 74 % (41-73); Platelet Count 312 K/mm3 (150-400); RDW Coefficient Variation 13.8 % (11.7-14.2); RDW Standard Deviation 40.4 fL (35.1-46.3); Red Blood Cell Count 5.95 M/mm3 (4.30-5.90); White Blood Cell Count 10.94 K/mm3 (4.00-11.30)
[2019-07-23 04:11] LABS: C-REACTIVE PROTEIN, EXT RANGE 17.2 mg/dL (0.000-0.300)
[2019-07-23 04:12] LABS: Albumin, Blood 2.1 g/dL (3.4-5.0); Albumin/Globulin Ratio 0.3 (0.8-1.8); Bilirubin, Total 0.5 mg/dL (0.1-1.0); Bun/Creatinine Ratio 20.9 (12.0-20.0); Calcium, Blood 9.3 mg/dL (8.5-10.1); Creatinine, Blood 2.25 mg/dL (0.60-1.20); Globulin, Blood 6.5 g/dL (2.2-4.0); Potassium, Blood 3.7 mmol/L (3.5-5.5); Total Protein, Blood 8.6 g/dL (6.4-8.2)
--- NOTE | 2019-07-23 05:12 | NUR ---
SHIFT SUMMARY: PATIENT EXPERIENCING FREQUENT EPISODES OF PAIN, C/O SHOOTING SENSATIONS IN RIGHT FOOT. FOOT WRAPPED FOR DRAINAGE AND ELEVATED, SEE EMAR FOR PAIN RELIEF. PICTURES OF RIGHT FOOT AND LEFT POSTERIOR LOWER LEG. PATIENT IMAGING OF RIGHT FOOT COMPLETED AND PATIENT UNABLE TO PIVOT TRANSFER (BASELINE) FROM BED TO GURNEY. PATIENT WAS ABLE TO SLIDE TRANSFER SELF FROM BED TO GURNEY. ALL VSS, CALL LIGHT WITHIN REACH, BED LOW AND LOCKED.
--- NOTE | 2019-07-23 07:42 | NUR ---
Bedside report received from Raeann Herman. THe pt appears to be sleeping, with a CPAP on, and continuous oxymetry reading 92%.
--- NOTE | 2019-07-23 08:55 | NUR ---
Assisted the pt with removal of the CPAP ABOUT 20 minutes ago when I entered the room for vital signs, assessment and medication administration. He began to yell, wanting something for his mouth and throat dryness. I got him several swabs (he is NPO for surgery this morning) and requested that he refrain from yelling. He became very angry, saying that he could not control it, and that I was calling him a liar because I had said that yelling was something that he could control. I asked him to please consider the other patients in the hospital and keep the noise level down. He was very angry, saying he did not care about anyone else, and that I should have compassion for him because of the emergency situation he was in after his CPAP made his mouth dry. Sidra Cuevas, clinical coordinator, came into the room and spoke with the patient, asking what was going on. The pt said that he was angry, and wanted to leave the hospital because he was just so tired of everything going on. AT this time, he is apologetic for his behavior, accepting his medications, but still adamant that he wants to leave the hospital and continue with home care and antiobiotics at home. self sealing fuel tank builder Maya notifying Dr. Bradford at this time. also explaining that he should
--- NOTE | 2019-07-23 09:05 | NUR ---
The pt states that he wants to leave as soon as possible and states that the main reason is because he wants to smoke. States he is allergic to the glue in the nicotine patches, so he can't have that. He states he is willing to finish the current antibiotic, but wants to leave so that he can smoke.
--- NOTE | 2019-07-23 09:21 | NUR ---
Dr. Bradford was here to speak to the pt. Multiple options for nicotine cravings were discussed, but all declined by the pt. He states that he just wants to go home and not have any more medical care. AMA form signed by the pt.
== END 2019-07-23 09:47 | disposition left against medical advice (07) | DRG 638 ==
LOC: ER 09:54 → PCU 09:55
PROVIDERS: Physician Assistant; ADMIT Family Medicine
DX: E11.69 Type 2 diabetes mellitus with other specified complication (principal); L03.115 Cellulitis of right lower limb; E87.2 Acidosis; E87.1 Hypo-osmolality and hyponatremia; G82.20 Paraplegia, unspecified; M86.8X7 Other osteomyelitis, ankle and foot; N17.9 Acute kidney failure, unspecified; F17.210 Nicotine dependence, cigarettes, uncomplicated; E11.22 Type 2 diabetes mellitus with diabetic chronic kidney disease; I12.9 Hypertensive chronic kidney disease with stage 1 through stage 4 chronic kidney disease, or unspecified chronic kidney disease; N18.9 Chronic kidney disease, unspecified; G65.0 Sequelae of Guillain-Barre syndrome; M10.9 Gout, unspecified; N40.0 Benign prostatic hyperplasia without lower urinary tract symptoms; E86.9 Volume depletion, unspecified; E11.621 Type 2 diabetes mellitus with foot ulcer; L97.519 Non-pressure chronic ulcer of other part of right foot with unspecified severity; J45.909 Unspecified asthma, uncomplicated; M51.37 Other intervertebral disc degeneration, lumbosacral region; E66.9 Obesity, unspecified; G47.33 Obstructive sleep apnea (adult) (pediatric); Z53.29 Procedure and treatment not carried out because of patient's decision for other reasons; Z68.38 Body mass index [BMI] 38.0-38.9, adult; Z88.1 Allergy status to other antibiotic agents; Z88.8 Allergy status to other drugs, medicaments and biological substances; Z91.013 Allergy to seafood; Z79.899 Other long term (current) drug therapy; Z79.4 Long term (current) use of insulin; Z79.01 Long term (current) use of anticoagulants
CPT/HCPCS: 36415; 71045; 73620; 73718; 80053; 82947; 83605; 85025; 85610; 85651; 85730; 86140; 87040; 93005; 93010; 93922; 94660; 94762; 96365; 96366; 99285-25; J0692; J1170; J1815; J7030; J7120

== ENCOUNTER 2019-07-31 11:48 | Inpatient (IN) | payer OTHER ==
[~2019-07-31] VITALS: Ht 182.9 cm; Wt 127.0 kg
[~2019-07-31 11:48] MED LIST changes: -ALLO100 PO; -Buspirone HCl15 MG PO; -COLCHICINE0.6 MG PO; +HYDHCL25 PO; -METO100 PO; -METO5A PO; -Metformin HCl1000 MG PO; -NYSTRITC TOP; -OMEPRAZOLE MAGN20 M1 PO; -Pravachol40 MG PO; -TAMSULOSIN HCL0.4 M1 PO; +TRIDERM454 GM TOP; -ZESTORETIC 20-1 EAC1 PO
[2019-07-31 12:38] LABS: BASOPHILS ABSOLUTE AUTO 0.06 K/mm3 (0.00-0.23); BASOPHILS PERCENT AUTO 0 % (0-2); EOSINOPHILS ABSOLUTE AUTO 0.14 K/mm3 (0.00-0.68); EOSINOPHILS PERCENT AUTO 1 % (0-6); Hematocrit 49.2 % (37.0-53.0); IMMATURE GRAN ABSOLUTE AUTO 0.07 K/mm3 (0.00-0.10); IMMATURE GRAN PERCENT AUTO 1 % (0-1); LYMPHOCYTES ABSOLUTE AUTO 1.73 K/mm3 (0.84-5.20); LYMPHOCYTES PERCENT AUTO 13 % (21-46); MONOCYTES ABSOLUTE AUTO 0.67 K/mm3 (0.16-1.47); MONOCYTES PERCENT AUTO 5 % (4-13); Mean Corpuscular HGB 26.3 pg (26.0-34.0); Mean Corpuscular HGB Conc 32.5 g/dL (31.5-36.5); Mean Corpuscular Volume 81 fL (80-100); NEUTROPHILS ABSOLUTE AUTO 10.93 K/mm3 (1.96-9.15); NEUTROPHILS PERCENT AUTO 81 % (41-73); Platelet Count 415 K/mm3 (150-400); Red Blood Cell Count 6.08 M/mm3 (4.30-5.90)
[2019-07-31 12:50] LABS: Albumin, Blood 2.5 g/dL (3.4-5.0); Albumin/Globulin Ratio 0.4 (0.8-1.8); Bilirubin, Total 0.4 mg/dL (0.1-1.0); Bun/Creatinine Ratio 16.8 (12.0-20.0); Calcium, Blood 9.3 mg/dL (8.5-10.1); Creatinine, Blood 3.15 mg/dL (0.60-1.20); Globulin, Blood 6.8 g/dL (2.2-4.0); Potassium, Blood 4.7 mmol/L (3.5-5.5); Total Protein, Blood 9.3 g/dL (6.4-8.2)
[2019-07-31] MEDS ORDERED: TRIA15CR3 TOP (12:52)
[2019-07-31] MEDS ORDERED: METO100 PO (12:54)
[2019-07-31] MEDS ORDERED: METO5A PO (12:54)
[2019-07-31] MEDS ORDERED: Pravachol40 MG PO (12:54)
[2019-07-31] MEDS ORDERED: ALLO100 PO (12:55)
[2019-07-31] MEDS ORDERED: COLCHICINE0.6 MG PO (12:55)
[2019-07-31] MEDS ORDERED: ZESTORETIC 20-1 EAC1 PO (12:56)
[2019-07-31] MEDS ORDERED: OMEPRAZOLE MAGN20 M1 PO (12:56)
[2019-07-31] MEDS ORDERED: Metformin HCl1000 MG PO (12:56)
[2019-07-31] MEDS ORDERED: Buspirone HCl15 MG PO (12:57)
[2019-07-31] MEDS ORDERED: TAMSULOSIN HCL0.4 M1 PO (12:57)
--- NOTE | 2019-07-31 17:52 | NUR ---
SHIFT NOTE PT ARRIVES FROM ER WITH FRESHLY DRESSED RLE. STRONG ODOR NOTED FROM WOUND. BLOODY DRAINAGE NOTED FROM WOUND. PT A/O X4. USING TABLET W/O DIFF. PT C/O 11/19 PAIN TO FOOT. PT IS MEDICATED FOR PAIN, FLUIDS INFUSING. PT WAS GIVEN 4LITERS OF NS IN ER. PT'S LACTIC HAS DECREASED BY 1 POINT SINCE ARRIVAL
[2019-08-01 03:50] LABS: BASOPHILS ABSOLUTE AUTO 0.05 K/mm3 (0.00-0.23); BASOPHILS PERCENT AUTO 1 % (0-2); EOSINOPHILS ABSOLUTE AUTO 0.22 K/mm3 (0.00-0.68); EOSINOPHILS PERCENT AUTO 2 % (0-6); Hematocrit 44.7 % (37.0-53.0); Hemoglobin 14.1 g/dL (13.5-17.5); IMMATURE GRAN ABSOLUTE AUTO 0.06 K/mm3 (0.00-0.10); IMMATURE GRAN PERCENT AUTO 1 % (0-1); LYMPHOCYTES ABSOLUTE AUTO 1.89 K/mm3 (0.84-5.20); LYMPHOCYTES PERCENT AUTO 20 % (21-46); MONOCYTES ABSOLUTE AUTO 0.66 K/mm3 (0.16-1.47); MONOCYTES PERCENT AUTO 7 % (4-13); Mean Corpuscular HGB 25.9 pg (26.0-34.0); Mean Corpuscular HGB Conc 31.5 g/dL (31.5-36.5); Mean Corpuscular Volume 82 fL (80-100); Mean Platelet Volume 9.7 fL (9.1-12.4); NEUTROPHILS ABSOLUTE AUTO 6.74 K/mm3 (1.96-9.15); NEUTROPHILS PERCENT AUTO 70 % (41-73); Platelet Count 314 K/mm3 (150-400); RDW Coefficient Variation 14.1 % (11.7-14.2); RDW Standard Deviation 42.3 fL (35.1-46.3); Red Blood Cell Count 5.44 M/mm3 (4.30-5.90); White Blood Cell Count 9.62 K/mm3 (4.00-11.30)
[2019-08-01 04:11] LABS: Bun/Creatinine Ratio 19.6 (12.0-20.0); Calcium, Blood 8.7 mg/dL (8.5-10.1); Creatinine, Blood 2.09 mg/dL (0.60-1.20); Potassium, Blood 4.5 mmol/L (3.5-5.5)
--- NOTE | 2019-08-01 05:54 | NUR ---
SHIFT SUMMARY PT A&O X4. VSS. MONITOR SHOWS NSR, HR 80's-100. SPO2 > 92% ON RA OR CPAP. PT ORIGINALLY WEARING HOME CPAP, CHANGED TO HOSPITAL CPAP PER PT REQUEST D/T PT STATEMENT OF "I'VE WOKEN UP 8 TIMES BECAUSE OF THE CPAP VIOLENTLY ATTACKING ME. THE PRESSURE IS TOO HIGH. I'VE TOLD MY DOCTOR BUT THEY DIDN'T CHANGE IT AND NOW I DON'T HAVE A DOCTOR." PT REQUESTING HOSPITAL CPAP W/ DIFFERENT SETTINGS. RT NOTIFIED W/ ORDER FROM MD CLINTON TO SET PT UP W/ HOSPITAL CPAP. PT REPORTS SATISFACTION W/ HOSP CPAP. PT CONTINUES TO C/O R FOOT PAIN, MEDICATED PER PT REQUEST/EMAR X3 THIS SHIFT. R FOOT WOUND CLEANSED & REDRESSED THIS SHIFT & PHOTOS TAKEN. PRESSURE ULCER ALSO NOTED TO BACK OF L ANKLE. WHEN INFORMING PT OF MD ORDER FOR ORTHO CONSULT FOR POSSIBLE AMPUTATION OF R FOOT, PT RESPONDED WITH, "NO, I AMMMMMMMM GETTING IT AMPUTATED." PT AWAITING CONSULT. WILL CONTINUE TO MONITOR & PROVIDE CARE UNTIL REPORT OFF TO DAY SHIFT RN.
--- NOTE | 2019-08-01 13:39 | NUR ---
the pt arrived from PCU 15, attended by 2 RNs, a PCT and RT. He is c/o pain. Medicated at this time with morphine for right foot pain. He is awake, alert, oriented, and verbalized understanding of his NPO status. PT is not sure when he is having surgery.
--- NOTE | 2019-08-01 14:43 | NUR ---
clinical cytogeneticist scientist Evon states that Dr. Villalobos was here, and that the pt will be having surgery tomorrow for a right foot amputation. New order for NPO after midnight tonight.
--- NOTE | 2019-08-01 16:36 | NUR ---
The pt is awake, groaning, and asking for his next pain medication. told him that it is available in approximately one hour, which he states is manageable. Blood sugar checked, and insulin coverage was administered as ordered.
--- NOTE | 2019-08-01 17:19 | NUR ---
The pt appears to be sleeping soundly, on his right side, skin pink and dry, and respirations even and unlabored.
[2019-08-02 03:46] LABS: BASOPHILS ABSOLUTE AUTO 0.04 K/mm3 (0.00-0.23); BASOPHILS PERCENT AUTO 1 % (0-2); EOSINOPHILS ABSOLUTE AUTO 0.18 K/mm3 (0.00-0.68); EOSINOPHILS PERCENT AUTO 2 % (0-6); Hematocrit 41.3 % (37.0-53.0); Hemoglobin 13.4 g/dL (13.5-17.5); IMMATURE GRAN ABSOLUTE AUTO 0.03 K/mm3 (0.00-0.10); IMMATURE GRAN PERCENT AUTO 0 % (0-1); LYMPHOCYTES ABSOLUTE AUTO 1.18 K/mm3 (0.84-5.20); LYMPHOCYTES PERCENT AUTO 14 % (21-46); MONOCYTES ABSOLUTE AUTO 0.58 K/mm3 (0.16-1.47); MONOCYTES PERCENT AUTO 7 % (4-13); Mean Corpuscular HGB 26.1 pg (26.0-34.0); Mean Corpuscular HGB Conc 32.4 g/dL (31.5-36.5); Mean Corpuscular Volume 80 fL (80-100); Mean Platelet Volume 9.5 fL (9.1-12.4); NEUTROPHILS PERCENT AUTO 77 % (41-73); Platelet Count 268 K/mm3 (150-400); RDW Coefficient Variation 14.1 % (11.7-14.2); RDW Standard Deviation 41.2 fL (35.1-46.3); Red Blood Cell Count 5.14 M/mm3 (4.30-5.90); White Blood Cell Count 8.71 K/mm3 (4.00-11.30)
[2019-08-02 04:02] LABS: Bun/Creatinine Ratio 19.9 (12.0-20.0); Calcium, Blood 8.7 mg/dL (8.5-10.1); Creatinine, Blood 1.41 mg/dL (0.60-1.20); Potassium, Blood 4.5 mmol/L (3.5-5.5)
--- NOTE | 2019-08-02 04:34 | NUR ---
SHIFT SUMMARY PT HAS BEEN A/O DURING THE NIGHT. PT SITS ON EDGE OF BED TO USE URINAL WITHOUT ASSISTANCE. HOWEVER HE DOES REPORT WEAKNESS IN LEGS. PT REPOSITIONS SELF IN BED AND HAS BEEN ASSISTED PRN. HE HAS BEEN NPO SINCE MIDNIGHT FOR SURGERY TODAY. PAIN IS MANAGED WITH IV MORPHINE PER ORDERS; PT REPORTS HIS R LEG/FOOT GETS QUITE PAINFUL AT TIMES. R FOOT IS WRAPPED AND SHOWS SOME DRAINAGE WITH FOUL ODOR. PT HAS BEEN SLEEPING MOST OF THE NIGHT AND HAS HAD HIS CPAP ON WHILE ASLEEP. NO ACUTE CHANGES.
--- NOTE | 2019-08-02 08:27 | NUR ---
SURGERY: PT TO OR AT THIS TIME. SURGICAL PKT COMPLETED. PREOP CBG 172. WILL CONT TO MONITOR WHEN RETURNS TO ROOM.
--- NOTE | 2019-08-02 08:54 | NUR ---
08/02/19 0854 Ciro Hodgson PATIENT ON SCHEDULED ANTIBIOTICS
--- NOTE | 2019-08-02 18:22 | NUR ---
PT HAS BEEN STABLE THIS SHIFT POST RLE AMPUTATION. STUMP SOCK WITH SMALL AMT DRY DRAINAGE. STUMP ELEVATED ON PILLOWS. PAIN CONTROLLED WITH PRN MEDS. PT ROSENDA ADA DIET. BLOOD SUGAR COVERAGE PER SLIDING SCALE. WOUND TO LLE WITH SMALL AMT SS DRAINAGE. PT HAD BEDBATH THIS SHIFT. PT ABLE TO WORK WITH THERAPY TO GET OOB TO WHEELCHAIR. CONT ABX. CPAP NEEDED FOR SLEEP. CONT BIOX ON. VOIDING WITH URINAL AND 1 ASSIST. PT GIVEN MIRILAX TO ASSIST BM, NONE THIS SHIFT. USES CALL LIGHT APPROPRIATELY NEEDED.
--- NOTE | 2019-08-03 04:00 | NUR ---
SHIFT SUMMARY PT HAS BEEN A/O X4. S/P R BKA; STUMP SOCK IN PLACE WITH SM AMT DRAINAGE. NO NEW DRAINAGE NOTED DURING THIS SHIFT. R LEG HAS BEEN ELEVATED ON PILLOWS. PT REPOSITIONED MULT TIMES THROUGHOUT THE SHIFT. PAIN MANAGED WITH PO AND IV PAIN MEDS PER ORDERS; DISCUSSED PAIN MANAGEMENT WITH PT AND ON-CALL HOSPITALIST. PT HAS BEEN WEARING CPAP AT NIGHT. CONT. BIOX IN PLACE. NO ACUTE CHANGES. ASSISTED WITH ADL'S PRN.
--- NOTE | 2019-08-03 09:16 | NUR ---
PT ARRIVED TO FLOOR AT APROX 0730 FROM ER. INITIAL SUICIDE ASSESSMENT DONE BY THIS RN, PT IS IN SECURED MONITOR ROOM WITH CONTINUOUS MONITORING IN PLACE. PT DENIES SI AT THIS TIME, ALTHOUGH STATES THAT SHE HAS SI AND PLAN WITHIN THE LAST 30 DAYS PRIOR TO THIS ATTEMPT. PT ADMITS TO PARTICIPATING IN SELF HARM BY CUTTING ON HER ARMS, STATES LAST TIME WAS ONE WEEK AGO, 3 WEEKS PRIOR TO THAT, HAS OLD SCARS/SCRATCHES PRESENT ON L FOREARM. MOTHER IN ROOM. AT APROX 0845 TELEPSYCH EVAL'D PT. WILL CONSULT WITH DR GREGORY REGARDING PLAN OF CARE.
--- NOTE | 2019-08-03 16:56 | NUR ---
SHIFT SUMMARY PT POD 1 R BKA. DRESSING AND STUMP SOCK CHANGED THIS SHIFT, INCISION SITE WNL. IV ABX PER EMAR. PT CONTINUES TO REQUEST HELP WITH URINAL. WORKED WITH PT, UP TO SIDE OF BED AND STOOD AT SIDE OF BED. PAIN HAS BEEN MANAGED WITH PO PAIN MEDICATION WITH 1 DOSE IV MORPHINE FOR BREAKTHRU PAIN.
--- NOTE | 2019-08-04 05:07 | NUR ---
SHIFT SUMMARY PT IS A/O X4. PT HAS NEEDED HELP USING URINAL DURING THE NIGHT. PAIN MANAGED WITH PO PAIN MED PER ORDER, SEE EMAR. STUMP SOCK IN PLACE TO R LEG/STUMP. PT MOVES SELF IN BED AND HAS BEEN ASSISTED WITH REPOSITIONING PRN.PT DID SIT UP ON EDGE OF BED ONCE BUT REPORTED THIS WAS QUITE PAINFUL. LEG HAS BEEN ELEVATED ON PILLOWS THROUGHOUT THE SHIFT. WEARS CPAP AT NIGHT. NO ACUTE CHANGES. WCTM.
--- NOTE | 2019-08-04 09:30 | NUR ---
RECVD REPORT FROM PREVIOUS SHIFT RN SUKUMAR, STUDENT RN TO ASSIST WITH PT CARE, PT AGREES TO THIS ASSIST. PT A/0 X 4, PLEASANT/COOPERATIVE, REQUESTS PAIN MEDICATION. PT APPEARS TO BE ANXIOUS, REQUESTS ASSISTANCE WITH URINAL. ASSISTED PT, ALSO DISCUSSED THE IMPORTANCE OF RETURNING TO REGULAR ACTIVTY MUCH POSSIBLE
--- NOTE | 2019-08-04 10:35 | NUR ---
progress note Pt was reciptive to using the urinal on his own with the HOB elevated to help him reach to hold the urinal. I moved blankets and pillows out of the way to assist. He prefers to take omeprazole for acid reflux. His left foot and lower leg is quite cold to the touch, skin on left foot is dusky, however, left dorsal pedal pulse is strong, cap refill < 3 sec.
--- NOTE | 2019-08-04 11:30 | NUR ---
PT'S DAUGHTER AT DESK SHARING CONCERN OVER TAKING PT HOME WITHOUT SCD FOR AC THERAPY. SPOKE WITH DR BURNETT, WHO WILL ROUND ON PT THIS AFTERNOON AND DISCUSS OPTIONS WITH PT AND DAUGHTER. CONSERVATOR [employer] WORKING ON COMPLETING PREPARATION FOR HOME EQUIPMENT, WHICH IS UNABLE TO BE COMPLETED TODAY DUE TO THE HOLIDAY.
--- NOTE | 2019-08-04 12:00 | NUR ---
PT UP IN WHEELCHAIR. PT STATES TO ACID REFLUX, REQUESTED RESTART HOME MEDICATION, HOSPITALIST TO RESTART HOME MEDS
--- NOTE | 2019-08-04 13:30 | NUR ---
PT DEMANDING TO RETURN TO BED, REFUSES TO SIT IN RECLINER, ABLE TO TRANSFER WITH FWW/GAIT BED WITH ONE PERSON ASSIST WELL
--- NOTE | 2019-08-04 13:40 | NUR ---
DR BURNETT ORDERED REPEAT H/H TO ASCERTAIN IF PT'S LEVELS ARE STABLE AND ABLE TO SUPPORT PO AC THERAPY. THIS RN NOTIFIED DAUGTHER AND PT
--- NOTE | 2019-08-04 14:50 | NUR ---
PT IN BED PRONE TO LENGTHEN HIP FLEXORS PER PT ORDERS, REPORTS ACID REFLUX STILL, HAS RECEIVED MEDICATIONS PER MAR
--- NOTE | 2019-08-04 14:58 | NUR ---
DR LEX FRANCIS ON PT, WILL DISCUSS PO AC THERAPY VS. SCD WITH PT AND DAUGHTER
--- NOTE | 2019-08-04 15:48 | NUR ---
PT HAS BEEN SITTING AT THE EDGE OF THE BED TO VOID INTO URINAL WITH MINIMAL ASSISTANCE. PT ATE A COUPLE OF CREACKERS AND SOME JELLO AND STATED THAT IT MADE HIS ACID REFLUX WORSE. OMEPRAZOLE WAS GIVEN, HE STATES THAT IT IS THE ONLY THING THAT RELIEVES HIS ACID REFLUX AND THAT IT TAKES A COUPLE OF DAYS FOR PEAK EFFECT FOR HIM.
--- NOTE | 2019-08-04 17:43 | NUR ---
SHIFT SUMMARY: A/O X 4, NO ACUTE CHANGES, PT WITH URINARY OUTPUT >800 ML. PT STATES PAIN CONTROLLED IN OPERATIVE LIMB PER MAY. PT CONCERNED ABOUT ACID REFLUX AND BEING UNABLE TO SLEEP, STATES HE DID NOT SLEEP AT ALL LAST NIGHT, DISCUSSED WITH HOSPTALIST TO RESTART HOME MEDICATIONS. PT RECEIVED MEDS PER MAY. PATIENT WORKED WITH PT/OT THIS SHIFT, UNWILLING TO SIT UP IN RECLINER, BUT SAT IN WHEELCHAIR FOR 2 HRS. PT REFUSED TO SIT UP IN CHAIR FOR MEALS DESPITE MULTIPLE EPISODES OF ENCOURAGEMENTS, REPORTS HE WILL NOT EAT DUE TO HIS REFLUX. WHEN PT ENCOURAGED/EDUCATED THE IMPORTANCE OF BEING UP FOR RECOVERY, HE REFUSED, BECAME AGITATED, TOLD THIS RN SHE DID NOT UNDERSTAND. THIS RN PROVIDED THERAPEUTIC COMMUNICATION TO ENSURE PT HE WAS HEARD. PT CALMED, YET STILL WOULD NOT SIT UP IN RECLINER. PT IS WILLING TO USE HIS OWN URINAL AND ASSIST WITH REPOSITING AFTER ENCOURAGEMENT AND RE-EDUCATION. PLAN IS FOR PT TO TRANSFER TO SNF UPON INSURANCE APPROVAL FOR PT AND PROSTETHIS FITTING.
--- NOTE | 2019-08-04 17:51 | NUR ---
Shift summary: Pt is able to sit at the edge of the bed to void using urinal with one person to assist him into sitting position. He is A/O x 4, pleasant and cooperative, and stated feeling some releif from acid reflux. He was given zophran, maalox, and omeprizole to relieve gastric symptoms. He has had hiccoughing, burping and nonproductive retching most of the day and I have not heard him vomit since approx 1630 hours. He reported feeling a little better at 1700 hours. Pt states a "feeling of fullness" with the acid reflux that is interfering with his appetite.
--- NOTE | 2019-08-05 06:31 | NUR ---
SHIFT SUMMARY POD 3 RIGHT BKA; STUMP SOCK C/D/I. REPORTS IMPROVEMENT WITH ACID REFLEX. PAIN MANAGED WITH 2 PO TABS. ROSENDA DIET, DENIES N/V. USES URINAL IND AND IS ABLE TO REPOSITION SELF IN BED. APPEARS TO HAVE SLEPT T/O NIGHT. IS CURRENTLY RESTING IN BED WITH CALL LIGHT IN REACH. PLAN FOR D/C TO SNF TODAY. WILL CONT TO MONITOR AND GIVE REPORT TO ONCOMING RN.
--- NOTE | 2019-08-05 07:33 | NUR ---
DR. CARCAMO NOTIFIED SPOKE WITH DR. CARCAMO R/T NO IV ACCESS AND BOWEL CARE. ORDER TO D/C IV ABX AND IV OBTAINED. SEE EMAR FOR BOWEL CARE ORDERS.
--- NOTE | 2019-08-05 12:55 | NUR ---
DISCHARGE REPORT CALLED TO SARAH AT [facility]. PT WAS ASSISTED INTO HIS W/C BY NURSING STAFF. HE WAS PROVIDED WITH HIS HOME BELONINGS. DISCHARGE PACKET AND SCRIPTS SENT WITH PT. PT HAD A BM PRIOR TO DISCHARGE.
== END 2019-08-05 12:54 | DRG 853 ==
LOC: ER 11:48 → SURS 13:18 → PCU 13:18 → SURS 08-01 13:23
PROVIDERS: Emergency Medicine; Orthopaedic Surgery; ADMIT Internal Medicine
PROC: 0Y6H0Z1 Detachment at Right Lower Leg, High, Open Approach (ICD-10-PCS; principal; 2019-08-02 08:00)
DX: A41.9 Sepsis, unspecified organism (principal); G82.50 Quadriplegia, unspecified; A48.0 Gas gangrene; M86.171 Other acute osteomyelitis, right ankle and foot; E87.1 Hypo-osmolality and hyponatremia; N18.4 Chronic kidney disease, stage 4 (severe); L97.516 Non-pressure chronic ulcer of other part of right foot with bone involvement without evidence of necrosis; R65.20 Severe sepsis without septic shock; F17.210 Nicotine dependence, cigarettes, uncomplicated; N40.0 Benign prostatic hyperplasia without lower urinary tract symptoms; N31.9 Neuromuscular dysfunction of bladder, unspecified; G47.33 Obstructive sleep apnea (adult) (pediatric); Z68.38 Body mass index [BMI] 38.0-38.9, adult; N52.9 Male erectile dysfunction, unspecified; E11.65 Type 2 diabetes mellitus with hyperglycemia; E11.621 Type 2 diabetes mellitus with foot ulcer; E11.22 Type 2 diabetes mellitus with diabetic chronic kidney disease; I12.9 Hypertensive chronic kidney disease with stage 1 through stage 4 chronic kidney disease, or unspecified chronic kidney disease; Z79.84 Long term (current) use of oral hypoglycemic drugs
CPT/HCPCS: 36415; 73630; 80048; 80053; 82947; 83605; 85025; 87040; 94660; 94762; 96365; 97110; 97112; 97162; 97166; 97530; 99285-25; A9270-GY; J2270; J2370; J2405; J2543; J2704; J3010; J7030; J7050; J7120; Q0163

== ENCOUNTER → 2019-08-11 | Outpatient (CLI) | payer OTHER ==
[~2019-08-11] MED LIST changes: +ALLO100 PO; +Buspirone HCl15 MG PO; +COLCHICINE0.6 MG PO; +METO100 PO; +METO5A PO; +Metformin HCl1000 MG PO; +OMEPRAZOLE MAGN20 M1 PO; +Pravachol40 MG PO; +TAMSULOSIN HCL0.4 M1 PO; +TRIA15CR3 TOP; +ZESTORETIC 20-1 EAC1 PO
[2019-08-11 11:59] LABS: Albumin, Blood 2.4 g/dL (3.4-5.0); Anion Gap 8 mmol/L (6-16); Blood Urea Nitrogen 36 mg/dL (8-24); Bun/Creatinine Ratio 31.3 (12.0-20.0); CO2, Blood 24 mmol/L (21-32); Calcium, Blood 9.2 mg/dL (8.5-10.1); Chloride, Blood 97 mmol/L (98-108); Creatinine, Blood 1.15 mg/dL (0.60-1.20); Glomerular Filtration Rate >60 (60-); Glucose, Blood 255 mg/dL (70-99); Phosphorus, Blood 3.3 mg/dL (2.5-4.9); Potassium, Blood 4.4 mmol/L (3.5-5.5); Sodium, Blood 129 mmol/L (136-145)
== END | disposition home or self-care (01) ==
LOC: EDSTATUS 10:52 → LAB RH 11:38
PROVIDERS: Family Medicine
DX: E11.69 Type 2 diabetes mellitus with other specified complication (principal); I10 Essential (primary) hypertension
CPT/HCPCS: 80069; 83036

== ENCOUNTER → 2019-08-20 | Outpatient (CLI) | payer OTHER ==
[2019-08-20 12:33] LABS: BASOPHILS ABSOLUTE AUTO 0.05 K/mm3 (0.00-0.23); BASOPHILS PERCENT AUTO 1 % (0-2); EOSINOPHILS ABSOLUTE AUTO 0.41 K/mm3 (0.00-0.68); EOSINOPHILS PERCENT AUTO 5 % (0-6); Hematocrit 41.8 % (37.0-53.0); Hemoglobin 13.4 g/dL (13.5-17.5); IMMATURE GRAN ABSOLUTE AUTO 0.06 K/mm3 (0.00-0.10); IMMATURE GRAN PERCENT AUTO 1 % (0-1); LYMPHOCYTES ABSOLUTE AUTO 1.49 K/mm3 (0.84-5.20); LYMPHOCYTES PERCENT AUTO 20 % (21-46); MONOCYTES ABSOLUTE AUTO 0.56 K/mm3 (0.16-1.47); MONOCYTES PERCENT AUTO 7 % (4-13); Mean Corpuscular HGB 26.2 pg (26.0-34.0); Mean Corpuscular HGB Conc 32.1 g/dL (31.5-36.5); Mean Corpuscular Volume 82 fL (80-100); Mean Platelet Volume 9.9 fL (9.1-12.4); NEUTROPHILS ABSOLUTE AUTO 5.07 K/mm3 (1.96-9.15); NEUTROPHILS PERCENT AUTO 66 % (41-73); Platelet Count 277 K/mm3 (150-400); RDW Coefficient Variation 15.9 % (11.7-14.2); RDW Standard Deviation 46.6 fL (35.1-46.3); Red Blood Cell Count 5.11 M/mm3 (4.30-5.90); White Blood Cell Count 7.64 K/mm3 (4.00-11.30)
[2019-08-20 12:56] LABS: Anion Gap 9 mmol/L (6-16); Blood Urea Nitrogen 28 mg/dL (8-24); Bun/Creatinine Ratio 26.9 (12.0-20.0); CO2, Blood 24 mmol/L (21-32); Calcium, Blood 8.7 mg/dL (8.5-10.1); Chloride, Blood 102 mmol/L (98-108); Creatinine, Blood 1.04 mg/dL (0.60-1.20); Glomerular Filtration Rate >60 (60-); Glucose, Blood 248 mg/dL (70-99); Potassium, Blood 4.1 mmol/L (3.5-5.5); Sodium, Blood 135 mmol/L (136-145)
== END | disposition home or self-care (01) ==
LOC: EDSTATUS 10:53 → LAB RH 12:24
PROVIDERS: Physician Assistant
DX: E11.65 Type 2 diabetes mellitus with hyperglycemia (principal); E11.22 Type 2 diabetes mellitus with diabetic chronic kidney disease; N18.4 Chronic kidney disease, stage 4 (severe); N31.9 Neuromuscular dysfunction of bladder, unspecified; M86.171 Other acute osteomyelitis, right ankle and foot
CPT/HCPCS: 80048; 85025

== ENCOUNTER → 2019-10-16 | Outpatient (CLI) | payer OTHER | END | disposition home or self-care (01) | LOC: LAB 15:29 → LAB SHORT 15:29 | DX: E11.621 Type 2 diabetes mellitus with foot ulcer (principal); L97.522 Non-pressure chronic ulcer of other part of left foot with fat layer exposed; E11.628 Type 2 diabetes mellitus with other skin complications; E11.42 Type 2 diabetes mellitus with diabetic polyneuropathy | CPT/HCPCS: 87070; 87077; 87186; 87205 ==

== ENCOUNTER → 2019-12-09 | Outpatient (CLI) | payer OTHER | END | disposition home or self-care (01) | LOC: LAB 18:54 → LAB SHORT 18:54 | DX: S81.802A Unspecified open wound, left lower leg, initial encounter (principal) | CPT/HCPCS: 87070; 87075; 87077; 87147; 87186; 87205 ==

== ENCOUNTER → 2020-01-19 | Outpatient (CLI) | payer OTHER | END | disposition home or self-care (01) | LOC: LAB SHORT 10:26 → LAB UCHC 10:26 | DX: L89.309 Pressure ulcer of unspecified buttock, unspecified stage (principal) | CPT/HCPCS: 87070; 87077; 87147; 87186; 87205 ==

== ENCOUNTER 2020-02-22 23:46 | Emergency (ER) | payer OTHER ==
[~2020-02-22] VITALS: Ht 170.2 cm; Wt 81.7 kg
[2020-02-23 00:20] LABS: Chloride (POC) 98 mmol/L (98-108); Creatinine (POC) 1.2 mg/dL (0.8-1.3); Glucose (ISTAT POC) 365 mg/dL (70-99); Potassium (POC) 4.3 mmol/L (3.5-5.5); Sodium (POC) 133 mmol/L (135-148); Total CO2 (POC) 26 mmol/L (21-32)
== END 2020-02-23 00:37 | disposition home or self-care (01) ==
LOC: ER 23:46
PROVIDERS: Emergency Medicine
DX: E11.65 Type 2 diabetes mellitus with hyperglycemia (principal); I10 Essential (primary) hypertension; F17.210 Nicotine dependence, cigarettes, uncomplicated; Z88.1 Allergy status to other antibiotic agents; Z91.013 Allergy to seafood; Z79.84 Long term (current) use of oral hypoglycemic drugs; Z79.899 Other long term (current) drug therapy
CPT/HCPCS: 80047; 82947; 85014; 99284-25

== ENCOUNTER 2020-09-06 00:39 | Day surgery (SDC) | payer OTHER ==
[~2020-09-06 00:39] MED LIST changes: +OXAYDO5 M1 PO
== END 2020-09-06 23:36 | disposition home or self-care (01) ==
LOC: WOUND 00:39
DX: E11.621 Type 2 diabetes mellitus with foot ulcer (principal); L97.426 Non-pressure chronic ulcer of left heel and midfoot with bone involvement without evidence of necrosis; E11.622 Type 2 diabetes mellitus with other skin ulcer; L97.322 Non-pressure chronic ulcer of left ankle with fat layer exposed; J44.9 Chronic obstructive pulmonary disease, unspecified; G47.30 Sleep apnea, unspecified; I10 Essential (primary) hypertension; Z79.4 Long term (current) use of insulin; M10.9 Gout, unspecified; M19.90 Unspecified osteoarthritis, unspecified site; F17.210 Nicotine dependence, cigarettes, uncomplicated; Z86.14 Personal history of Methicillin resistant Staphylococcus aureus infection; Z95.828 Presence of other vascular implants and grafts; Z89.511 Acquired absence of right leg below knee; Z91.013 Allergy to seafood
CPT/HCPCS: A9270; G0463

== ENCOUNTER 2020-09-16 01:25 | Day surgery (SDC) | payer OTHER | END 2020-09-16 23:39 | disposition home or self-care (01) | LOC: WOUND 01:25 | DX: E11.621 Type 2 diabetes mellitus with foot ulcer (principal); L97.426 Non-pressure chronic ulcer of left heel and midfoot with bone involvement without evidence of necrosis; E11.622 Type 2 diabetes mellitus with other skin ulcer; L97.322 Non-pressure chronic ulcer of left ankle with fat layer exposed; I10 Essential (primary) hypertension; G82.50 Quadriplegia, unspecified; G65.0 Sequelae of Guillain-Barre syndrome; J45.909 Unspecified asthma, uncomplicated; F17.210 Nicotine dependence, cigarettes, uncomplicated; Z86.14 Personal history of Methicillin resistant Staphylococcus aureus infection; Z87.39 Personal history of other diseases of the musculoskeletal system and connective tissue; Z89.511 Acquired absence of right leg below knee; Z95.828 Presence of other vascular implants and grafts | CPT/HCPCS: A9270 ==

== ENCOUNTER 2020-09-23 00:30 | Day surgery (SDC) | payer OTHER | END 2020-09-23 22:47 | disposition home or self-care (01) | LOC: WOUND 00:30 | DX: E11.621 Type 2 diabetes mellitus with foot ulcer (principal); L97.422 Non-pressure chronic ulcer of left heel and midfoot with fat layer exposed; J45.909 Unspecified asthma, uncomplicated; F17.210 Nicotine dependence, cigarettes, uncomplicated | CPT/HCPCS: A9270 ==

== ENCOUNTER 2020-09-30 00:21 | Day surgery (SDC) | payer OTHER | END 2020-09-30 22:46 | disposition home or self-care (01) | LOC: WOUND 00:21 | DX: E11.621 Type 2 diabetes mellitus with foot ulcer (principal); L97.422 Non-pressure chronic ulcer of left heel and midfoot with fat layer exposed; L97.324 Non-pressure chronic ulcer of left ankle with necrosis of bone; M79.672 Pain in left foot; I73.9 Peripheral vascular disease, unspecified; I10 Essential (primary) hypertension; F17.210 Nicotine dependence, cigarettes, uncomplicated; Z91.013 Allergy to seafood | CPT/HCPCS: 87071; 87075; 87076; 87077; 87185; 87186; 87205; A9270 ==

== ENCOUNTER → 2020-09-30 | Outpatient (CLI) | payer OTHER | END | disposition home or self-care (01) | LOC: LAB SHORT 07:54 | DX: C44.311 Basal cell carcinoma of skin of nose (principal) | CPT/HCPCS: 88305 ==

== ENCOUNTER 2020-10-07 02:08 | Day surgery (SDC) | payer OTHER ==
[~2020-10-07 02:08] MED LIST changes: -Pravachol40 MG PO; +Pravastatin Sod40 MG PO
== END 2020-10-07 22:41 | disposition home or self-care (01) ==
LOC: WOUND 02:08
DX: E11.621 Type 2 diabetes mellitus with foot ulcer (principal); L97.524 Non-pressure chronic ulcer of other part of left foot with necrosis of bone; L97.322 Non-pressure chronic ulcer of left ankle with fat layer exposed; M79.672 Pain in left foot; E11.51 Type 2 diabetes mellitus with diabetic peripheral angiopathy without gangrene
CPT/HCPCS: 73630; A9270; G0463

== ENCOUNTER 2020-10-13 10:24 | Inpatient (IN) | payer OTHER ==
[~2020-10-13] VITALS: Ht 182.9 cm; Wt 125.1 kg
[2020-10-13 15:11] LABS: BASOPHILS ABSOLUTE AUTO 0.05 K/mm3 (0.00-0.23); BASOPHILS PERCENT AUTO 1 % (0-2); EOSINOPHILS ABSOLUTE AUTO 0.28 K/mm3 (0.00-0.68); EOSINOPHILS PERCENT AUTO 4 % (0-6); Hematocrit 43.5 % (37.0-53.0); Hemoglobin 14.3 g/dL (13.5-17.5); IMMATURE GRAN ABSOLUTE AUTO 0.03 K/mm3 (0.00-0.10); IMMATURE GRAN PERCENT AUTO 0 % (0-1); LYMPHOCYTES ABSOLUTE AUTO 1.43 K/mm3 (0.84-5.20); LYMPHOCYTES PERCENT AUTO 18 % (21-46); MONOCYTES ABSOLUTE AUTO 0.53 K/mm3 (0.16-1.47); MONOCYTES PERCENT AUTO 7 % (4-13); Mean Corpuscular HGB 25.4 pg (26.0-34.0); Mean Corpuscular HGB Conc 32.9 g/dL (31.5-36.5); Mean Corpuscular Volume 77 fL (80-100); NEUTROPHILS ABSOLUTE AUTO 5.54 K/mm3 (1.96-9.15); NEUTROPHILS PERCENT AUTO 71 % (41-73); Platelet Count 367 K/mm3 (150-400); RDW Coefficient Variation 15.3 % (11.7-14.2); RDW Standard Deviation 42.8 fL (35.1-46.3); Red Blood Cell Count 5.64 M/mm3 (4.30-5.90); White Blood Cell Count 7.86 K/mm3 (4.00-11.30)
[2020-10-13] MEDS ORDERED: SEMGLEE PE100 UNIT/1 SC (15:30)
[2020-10-13 15:34] LABS: Prothrombin Time Results 10.8 Sec (9.7-11.5)
[2020-10-13 15:46] LABS: Albumin, Blood 3.1 g/dL (3.4-5.0); Albumin/Globulin Ratio 0.5 (0.8-1.8); Bilirubin, Total 0.2 mg/dL (0.1-1.0); Bun/Creatinine Ratio 21.7 (12.0-20.0); Calcium, Blood 9.7 mg/dL (8.5-10.1); Creatinine, Blood 1.52 mg/dL (0.60-1.20); Potassium, Blood 5.7 mmol/L (3.5-5.5); Total Protein, Blood 9.1 g/dL (6.4-8.2)
[2020-10-13 16:10] LABS: SARS-Cov-2 (COVID-19) PCR, MMC NEGATIVE (NEGATIVE)
[2020-10-13] MEDS ORDERED: FINA5 PO (18:00)
[2020-10-13] MEDS ORDERED: FURO20 PO (18:01)
[2020-10-13] MEDS ORDERED: Flonase 0.05% N16 GM (18:01)
[2020-10-13] MEDS ORDERED: GABA300 PO (18:02)
[2020-10-13] MEDS ORDERED: LISI20 PO (18:04)
[2020-10-13] MEDS ORDERED: HUMALOG KW100 UNIT/1 SC (18:04)
[2020-10-13] MEDS ORDERED: METAMUCIL POWD575 GM PO ×2 (18:05→18:06)
[2020-10-13] MEDS ORDERED: METF500 PO (18:06)
[2020-10-13] MEDS ORDERED: METTREX2.5 PO (18:07)
[2020-10-13] MEDS ORDERED: PRAZ5 PO (18:11)
[2020-10-13] MEDS ORDERED: OXYC5 PO (18:14)
--- NOTE | 2020-10-13 19:23 | NUR ---
SHIFT SUMMARY: ASSUMED CARE OF PATIENT UPON HIS ARRIVAL FROM ED AT 1630. A&O X 4, PLEASANT. VERBALIZED UNDERSTANDING OF TOBACCO FREE CAMPUS, PLAN FOR NPO AFTER MN AND SURGERY TOMORROW. HAS POWER CHAIR AT BEDSIDE, LIVES AT [facility].
[2020-10-14] MEDS ORDERED: ONDA4 PO (02:45)
[2020-10-14] MEDS ORDERED: ACET500 PO (02:47)
--- NOTE | 2020-10-14 04:41 | NUR ---
SHIFT SUMMARY PATIENT ALERT AND ORIENTED. HAD NO COMPLAINTS OF PAIN OR SHORTNESS OF BREATH. IS CURRENTLY NPO IN PREPARATION FOR SURGERY TODAY. IV PATENT AND FLUSHED. BED IN LOWEST POSITION WITH WHEELS LOCKED. CALL LIGHT WITHIN REACH. REPORT GIVEN TO ONCOMING MIRELLA.
[2020-10-14 05:33] LABS: BASOPHILS ABSOLUTE AUTO 0.07 K/mm3 (0.00-0.23); BASOPHILS PERCENT AUTO 1 % (0-2); EOSINOPHILS ABSOLUTE AUTO 0.31 K/mm3 (0.00-0.68); EOSINOPHILS PERCENT AUTO 5 % (0-6); Hematocrit 40.2 % (37.0-53.0); Hemoglobin 13.3 g/dL (13.5-17.5); IMMATURE GRAN ABSOLUTE AUTO 0.04 K/mm3 (0.00-0.10); IMMATURE GRAN PERCENT AUTO 1 % (0-1); LYMPHOCYTES ABSOLUTE AUTO 1.58 K/mm3 (0.84-5.20); LYMPHOCYTES PERCENT AUTO 24 % (21-46); MONOCYTES ABSOLUTE AUTO 0.45 K/mm3 (0.16-1.47); MONOCYTES PERCENT AUTO 7 % (4-13); Mean Corpuscular HGB 25.3 pg (26.0-34.0); Mean Corpuscular HGB Conc 33.1 g/dL (31.5-36.5); Mean Corpuscular Volume 77 fL (80-100); Mean Platelet Volume 8.9 fL (9.1-12.4); NEUTROPHILS ABSOLUTE AUTO 4.15 K/mm3 (1.96-9.15); NEUTROPHILS PERCENT AUTO 63 % (41-73); Platelet Count 324 K/mm3 (150-400); RDW Coefficient Variation 15.1 % (11.7-14.2); RDW Standard Deviation 41.9 fL (35.1-46.3); Red Blood Cell Count 5.25 M/mm3 (4.30-5.90)
[2020-10-14 05:50] LABS: International Normalized Ratio 1.03; Prothrombin Time Results 11.1 Sec (9.7-11.5)
[2020-10-14 05:59] LABS: Bun/Creatinine Ratio 19.6 (12.0-20.0); Calcium, Blood 9.6 mg/dL (8.5-10.1); Creatinine, Blood 1.43 mg/dL (0.60-1.20); Potassium, Blood 4.7 mmol/L (3.5-5.5)
--- NOTE | 2020-10-14 14:45 | NUR ---
Spiritual care visit conducted. Patient is sitting on EOB and alert. Patient immediately tells me that he is going to leave AMA because his says that his surgery is 2 hrs late, he "needs a smoke" and he is not sure he even wants to have the surgery. He repeats often, "I just don't care anymore." Patient goes on to tell about his "horrible" life but as I ask him about where he lives (at [facility] in [place]) and his Buddhism (he attends 2 churches; 1. [employer] and the other he says is called [employer]), he states that he enjoys them and has some meaningful connections in them. He also says that his Christain matthew is important to him and that it gives him hope. MIRELLA Mujica is called in by patient as he still is considering leaving [place] and Guanako discovers that his patch for pain has come off the patient's back and is wrapped around his hospital gown cord. Patient settles down quickly not only because of Guanako's persuasive words but also because he sees a relief for his symptoms coming. I Provide therapeutic listening, anxiety containment, pastoral deputy chief counsel and prayer. Patient responds well and shows signs of reduced stress, I will continue to remain available to patient and family.
--- NOTE | 2020-10-14 14:53 | NUR ---
SPOKE TO PT. IN PAIN. STATES FENTANYL PATCH ON BACK. CHECKED. NOT ON PT. IS 50 MCG FENTANYL PATCH WRAPPED IN GOWN TIE. REMOVED. CALLED DR DUNCAN.. OKAYED NEW PATCH AND ALSO 25 MCG Q8P IV.
--- NOTE | 2020-10-14 18:03 | NUR ---
PT PLEASANT TODAY. DID GET AGITATED AND FRUSTRATED . NO SURGERY SINCE AM TO THIS POINT TODAY. IS HUNGRY. ORDERED TRAY AND WILL GIVE IF NO SURG TODAY. CAME TO SEE WAS PLANNING LEAVING AMA. AGREED TO STAY. DID FIND THAT HIS FENTANYL PATCH WAS OUTDATED BY 2 DAYS AND ALSO WAS WOUND UP IN HIS GOWN. THEREFOR WAS NOT RECEIVING PAIN COVERAGE. NEW PATCH ORDERED AND ALSO CATCH UP IV DOSE ORDERED AND GIVEN. PT SOME BETTER. PENDIN SURG THIS IVÁN OR POSS TOMORROW. BED IN LOW POSITION, CALL LITE IN REACH, CALLS APPROP
--- NOTE | 2020-10-14 18:28 | NUR ---
SURGERY POSTPONED TO TOMORROW. NPO MIDNITE PER DR CELIS
[2020-10-15 05:52] LABS: BASOPHILS ABSOLUTE AUTO 0.05 K/mm3 (0.00-0.23); BASOPHILS PERCENT AUTO 1 % (0-2); EOSINOPHILS PERCENT AUTO 6 % (0-6); Hematocrit 41.5 % (37.0-53.0); Hemoglobin 13.1 g/dL (13.5-17.5); IMMATURE GRAN ABSOLUTE AUTO 0.02 K/mm3 (0.00-0.10); IMMATURE GRAN PERCENT AUTO 0 % (0-1); LYMPHOCYTES ABSOLUTE AUTO 1.54 K/mm3 (0.84-5.20); LYMPHOCYTES PERCENT AUTO 29 % (21-46); MONOCYTES ABSOLUTE AUTO 0.35 K/mm3 (0.16-1.47); MONOCYTES PERCENT AUTO 7 % (4-13); Mean Corpuscular HGB Conc 31.6 g/dL (31.5-36.5); Mean Corpuscular Volume 79 fL (80-100); Mean Platelet Volume 8.7 fL (9.1-12.4); NEUTROPHILS ABSOLUTE AUTO 2.99 K/mm3 (1.96-9.15); NEUTROPHILS PERCENT AUTO 57 % (41-73); Platelet Count 304 K/mm3 (150-400); RDW Coefficient Variation 14.9 % (11.7-14.2); RDW Standard Deviation 42.8 fL (35.1-46.3); Red Blood Cell Count 5.23 M/mm3 (4.30-5.90); White Blood Cell Count 5.25 K/mm3 (4.00-11.30)
[2020-10-15 06:25] LABS: Albumin, Blood 2.6 g/dL (3.4-5.0); Albumin/Globulin Ratio 0.5 (0.8-1.8); Bilirubin, Total 0.3 mg/dL (0.1-1.0); Bun/Creatinine Ratio 17.4 (12.0-20.0); Calcium, Blood 9.3 mg/dL (8.5-10.1); Creatinine, Blood 1.32 mg/dL (0.60-1.20); Globulin, Blood 5.1 g/dL (2.2-4.0); Potassium, Blood 4.8 mmol/L (3.5-5.5); Total Protein, Blood 7.7 g/dL (6.4-8.2)
--- NOTE | 2020-10-15 06:46 | NUR ---
SHIFT SUMMARY NO ACUTE CHANGES THIS SHIFT, NO C/O ANY KIND, NPO SINCE MIDNIGHT, SLEPT T/O THE NIGHT & SLEEPING AT THIS TIME, CALL LIGHT IN REACH, WILL CONT TO MONITOR UNTIL REPORT GIVEN TO DAY RN.
--- NOTE | 2020-10-15 11:05 | NUR ---
PT OUT TO DAY SURG, 110
--- NOTE | 2020-10-15 11:32 | NUR ---
PT RECENTLY HERE BY BED. PT DROWSY BUT AWAKENS EASILY. SLOW TO RESPOND. ANSWERS YES/NO QUESTIONS. ORIENTED TO SELF AND BIRTHDAY.
--- NOTE | 2020-10-15 11:45 | NUR ---
PT MORE AWAKE AND ALERT. APPEARS ORIENTED AT THIS TIME TO SELF, BEING IN HOSPITAL, YEAR, PRESIDENT.
--- NOTE | 2020-10-15 12:19 | NUR ---
TOOK OVER PATIENT CARE AFTER REPORT WAS REDEIVED.
--- NOTE | 2020-10-15 17:51 | NUR ---
PT QUITE PLEASANT TODAY. SOMETIMES IF DOES NOT HEAR CORRECTLY WILL ANSWER "OK" NOT KNOWING QUESTION, SO IS INAPROP ANSWER. HAD FOOT SURG TODAY. NO C/O PAIN SINCE. DID SWALLOW WATER FINE, ALSO ROSENDA JELLO FINE. UPDATED TO ADA DIET. PT PLEASED. INSTRUCTED ON USE OF I/S Q10 MIN. AT LEAST EVERY COMMERCIAL. FOOT PROPPED ON PILLOW AND 3 FOLDED BATH BLANKETS. WOUND VAC ON AND OPPERATIONAL. BED IN LOW POSITION, CALLLITE IN REACH, CALLS APPROP
[2020-10-16 05:34] LABS: BASOPHILS ABSOLUTE AUTO 0.05 K/mm3 (0.00-0.23); BASOPHILS PERCENT AUTO 1 % (0-2); EOSINOPHILS ABSOLUTE AUTO 0.28 K/mm3 (0.00-0.68); EOSINOPHILS PERCENT AUTO 5 % (0-6); Hematocrit 36.4 % (37.0-53.0); Hemoglobin 11.7 g/dL (13.5-17.5); IMMATURE GRAN ABSOLUTE AUTO 0.01 K/mm3 (0.00-0.10); IMMATURE GRAN PERCENT AUTO 0 % (0-1); LYMPHOCYTES ABSOLUTE AUTO 1.11 K/mm3 (0.84-5.20); LYMPHOCYTES PERCENT AUTO 18 % (21-46); MONOCYTES ABSOLUTE AUTO 0.39 K/mm3 (0.16-1.47); MONOCYTES PERCENT AUTO 6 % (4-13); Mean Corpuscular HGB 25.6 pg (26.0-34.0); Mean Corpuscular HGB Conc 32.1 g/dL (31.5-36.5); Mean Corpuscular Volume 80 fL (80-100); Mean Platelet Volume 8.8 fL (9.1-12.4); NEUTROPHILS ABSOLUTE AUTO 4.32 K/mm3 (1.96-9.15); NEUTROPHILS PERCENT AUTO 70 % (41-73); Platelet Count 259 K/mm3 (150-400); RDW Coefficient Variation 14.9 % (11.7-14.2); RDW Standard Deviation 42.7 fL (35.1-46.3); Red Blood Cell Count 4.57 M/mm3 (4.30-5.90); White Blood Cell Count 6.16 K/mm3 (4.00-11.30)
--- NOTE | 2020-10-16 11:19 | NUR ---
0800 PT AROUSABLE, SPEAK TO HIM AND HE NODS Y/N OR MUMBLES Y/N, NO ANSWERS RE , AGE, PLACE, FALLS BACK ASLEEP. LOOKS AT ME,BUT DOES NOT SEEM TO PROCESS QUESTIONS WELL. DOES NOT RESP APPROP. IS QUITE LETHARGIC. REMOVED FENTALYL PATCH. CALLED DR GELLER, AND DR LARIOS, OKAY TO REMOVE PATCH. WILL COME SEE PT. NARCAN NOT RECOMMENDED BY DR. MEHTA. O2 STABLE ON R.A. IS MOVING ALL EXT WELL WAS YESTERDAY, BUT BARELY SPEAKS. WILL FOLLOW FENTANYL WEARS OFF T/O DAY. DR INDICATES WILL PLACE ORDER FOR SMALLER DOSE TO BE PLACED WHEN WAKING UP. BED IN LOW POSITION, CALL LITE IN REACH, BED ALARM ON FOR SAFETY WOUND VAC OPERATIONAL. NO FURTHER DRAINAGE FROM MIDNITE
--- NOTE | 2020-10-16 17:56 | NUR ---
PT HAS HAD VERY SLIGHT IMPROVEMENT THIS AFT REGARDING HIS COGNITION. HAS BEEN ABLE TO ONLY ANSWER FIRST NAME AFTER SEVERAL PROMPTINGS. THIS IVÁN DID ASK FOR ICE. DOES NOT APPEAR TO HEAR ADEQUATELY. DISCUSSED WITH DR LARIOS. CT ORDERED AND DONE. DR MCCOLLUM ALSO OBSERVED AND IS AWARE. AGAIN, FENTANYL PATCH WAS REMOVED THIS AM. NEW ORDERED SMALLER DOSE FENTANYL PATCH WAS NOT PLACED. TOO LETHARGIC. HAS HAD 3 B/M UNFORMED SOFT TODAY. BED IN LOW POSITION, CALLLITE IN REACH. BED ALARM ONFOR SAFETY
--- NOTE | 2020-10-16 19:20 | NUR ---
ASSUMED CARE RECEIVED REPORT FROM MIRELLA ROMERO. PT LYING IN BED, ATTEMPTING TO REMOVE SOILED BRIEF; PROVIDED RE-DIRECTION. THIMBLE PRESS OPERATOR TO PROVIDE ASSISTANCE WITH GETTING CLEANED UP. NO OTHER ACUTE NEEDS ASSESSED AT THIS TIME. CALL LIGHT, POSSESSIOSN IN REACH, BED IN LOW AND LOCKED POSITION WITH ALARMS ON.
--- NOTE | 2020-10-16 23:55 | NUR ---
NOTIFIED DR. LEVY OF PT'S DRY HEAVING, NAUSEA. ORDERS RECEIVED AND ENTERED INTO [employer]. TM.
[2020-10-17 05:34] LABS: BASOPHILS ABSOLUTE AUTO 0.04 K/mm3 (0.00-0.23); BASOPHILS PERCENT AUTO 1 % (0-2); EOSINOPHILS ABSOLUTE AUTO 0.29 K/mm3 (0.00-0.68); EOSINOPHILS PERCENT AUTO 6 % (0-6); Hematocrit 33.5 % (37.0-53.0); Hemoglobin 10.8 g/dL (13.5-17.5); IMMATURE GRAN ABSOLUTE AUTO 0.02 K/mm3 (0.00-0.10); IMMATURE GRAN PERCENT AUTO 0 % (0-1); LYMPHOCYTES ABSOLUTE AUTO 1.32 K/mm3 (0.84-5.20); LYMPHOCYTES PERCENT AUTO 26 % (21-46); MONOCYTES ABSOLUTE AUTO 0.39 K/mm3 (0.16-1.47); MONOCYTES PERCENT AUTO 8 % (4-13); Mean Corpuscular HGB 25.6 pg (26.0-34.0); Mean Corpuscular HGB Conc 32.2 g/dL (31.5-36.5); Mean Corpuscular Volume 79 fL (80-100); Mean Platelet Volume 8.8 fL (9.1-12.4); NEUTROPHILS ABSOLUTE AUTO 2.97 K/mm3 (1.96-9.15); NEUTROPHILS PERCENT AUTO 59 % (41-73); Platelet Count 238 K/mm3 (150-400); RDW Coefficient Variation 14.6 % (11.7-14.2); RDW Standard Deviation 41.7 fL (35.1-46.3); Red Blood Cell Count 4.22 M/mm3 (4.30-5.90); White Blood Cell Count 5.03 K/mm3 (4.00-11.30)
[2020-10-17 05:55] LABS: Alanine Aminotransfer (ALT/SGP 19 U/L (12-78); Albumin, Blood 2.3 g/dL (3.4-5.0); Albumin/Globulin Ratio 0.6 (0.8-1.8); Alk Phos 58 U/L (50-136); Anion Gap 6 mmol/L (6-16); Aspartate Aminotrans (AST/SGOT 11 U/L (12-37); Bilirubin, Total 0.3 mg/dL (0.1-1.0); Blood Urea Nitrogen 11 mg/dL (8-24); Bun/Creatinine Ratio 11.2 (12.0-20.0); CO2, Blood 23 mmol/L (21-32); Calcium, Blood 8.3 mg/dL (8.5-10.1); Chloride, Blood 107 mmol/L (98-108); Creatinine, Blood 0.98 mg/dL (0.60-1.20); Globulin, Blood 4.1 g/dL (2.2-4.0); Glomerular Filtration Rate >60 (60-); Glucose, Blood 152 mg/dL (70-99); Potassium, Blood 3.9 mmol/L (3.5-5.5); Sodium, Blood 136 mmol/L (136-145); Total Protein, Blood 6.4 g/dL (6.4-8.2)
--- NOTE | 2020-10-17 06:39 | NUR ---
OCEAN EXPORT AGENT SUMMARY PT RESTING, IN NAD. MENTATION IMPROVED T/O SHIFT, AT BEGINNING ONLY ABLE TO ANSWER SIMPLE YES/NO QUESTIONS AND PROVIDE 1-2 WORD ANSWERS; ALERT TO NAME ONLY. PT BECAME INCREASINGLY MORE ALERT, T/O SHIFT, SPEAKING IN FULL SENTENCES THIS AM, ABLE TO STATE NAME/, MAKE NEEDS KNOWN APPROPRIATELY. VS REVIEWED,WNL, O2 SATS WNL ON RA OR CPAP. PAIN MEDICATIONS HELD D/T HX SEDATION. NO ACUTE NEEDS ASSESSED AT THIS TIME. CALL LIGHT, POSSESSIONS IN REACH, BED IN LOW AND LOCKED POSITION WITH ALARMS ON. WILL REPORT OFF TO ONCOMING RN.
--- NOTE | 2020-10-17 08:30 | NUR ---
PT PLEASANT COOP A/O X3 THIS AM. FULLY ALERT AND TALKING FULL SENTENCES. TELLING HIS OWN MADE JOKES. STATES PAIN VERY MINIMAL. WOUND VAC ON L FOOT IS CDI. VERY MINIMAL DRAINAGE IN WOUND VAC CONTAINER. NO PAIN PATCH ON PT AT THIS TIME. H/R REG, NO MURMER NOTED. NO TELE. LUNG CLEAR, RESP EASY, UNLABORED. ON R/A. BT X4, LAST BM THIS AM. VOIDS URINAL. BED IN LOW POSITION, JUAN PABLO LITE IN REACH, CALLS APPROP
--- NOTE | 2020-10-17 18:35 | NUR ---
PT HAS BEEN QUITE PLEASNT TODAY. A/O X3 TELLING JOKES. RETURNED TO BASELINE COGNITION. C/O PAIN TODAY. MEDICATED WITH 12.5MG IV FENTANYL . THIS IVÁN HAS C/O PAIN AGAIN. PLACED 12 MG PATCH PER YEST DR ORDER. MOVED DAY FOR REPLACEMENT TO TODAY +3 DAYS PER PHARMACY. NO MEASURABLE DRAINAGE TODAY T/O SHIFT ON WOUND VAC. BED IN LOW POSITION, CALL LITE IN REACH, CALLS APPROP
--- NOTE | 2020-10-17 19:20 | NUR ---
ASSUMED CARE RECEIVED REPORT FROM MIRELLA ROMERO. PT RESTING, IN NAD. NO ACUTE NEEDS ASSESSED AT THIS TIME. CALL LIGHT AND POSSESSIONS IN REACH.
--- NOTE | 2020-10-18 03:30 | NUR ---
THIS RN NOTIFIED BY PELT GRADER OF PT HAVING A "PANIC ATTACK." ON ASSESSMENT, PT TREMULOUS, TACHYPNEIC. REPORTS THAT HE GETS THESE EVERY ONCE IN A WHILE AT HOME. OFFERED SUPPORT. BROUGHT PT A SNACK AND NICOTINE GUM. PT STATES IT IS HELPING HIM. LEON.
--- NOTE | 2020-10-18 07:45 | NUR ---
TAR BOILER SUMMARY PT RESTING, IN NAD. NO FURTHER EPISODES OF "PANIC ATTACKS," PT APPEARS AT EASE. VS REVIEWED,WNL. NO OTHER ACUTE CHANGES TO REPORT OVERNIGHT. WOUND VAC TO LLE DRAINING SCANT AMOUNT SANGUINEOUS DRAINAGE, TUBING FREE OF KINKS. PT DENIES PAIN/DISCOMFORT TO SITE. NO ACUTE NEEDS ASSESSED AT THIS TIME. CALL LIGHT, POSSESSIONS IN REACH, BED IN LOW AND LOCKED POSITION. REPORT GIVEN TO MIRELLA TORRES.
[2020-10-18] MEDS ORDERED: LINE600 PO (14:43)
[2020-10-18] MEDS ORDERED: TAMS.4ER PO (14:44)
--- NOTE | 2020-10-18 18:24 | NUR ---
SHIFT SUMMARY PT WAS TO BE DISCHARGED TODAY BUT HORACE TOLD THIS RN THAT THE PT HAS TO BE EVALUATED BEFORE PT CAN COME BACK. THIS RN NOTIFIED DR. HAMM OF THIS. PT ABLE TO TRANSFER SELF TO WHEELCHAIR FROM BED. WOUND VAC WAS CHANGED BY DR. CELIS THIS AM AND IN PLACE AT THIS TIME. PT REPORTS PAIN IS CONTROLLED WITH FENTANYL PATCH. NO ACUTE CHANGES AT THIS TIME. PT HAS A GOOD APPETITE AND HAS BEEN VOIDING/HAVING BM WITHOUT DIFFICULTY. WILL CONTINUE TO MONITOR AND REPORT TO ONCOMING RN. CALL LIGHT IN REACH.
--- NOTE | 2020-10-19 04:27 | NUR ---
SHIFT SUMMARY NO ACUTE CHANGES THIS SHIFT, PT REPORTS PAIN IS ADEQUATELY CONTROLLED W/FENT PATCH, VSS, SLEPT T/O THE NIGHT, CALL LIGHT IN REACH, WILL CONT TO MONITOR UNTIL REPORT GIVEN TO DAY RN.
--- NOTE | 2020-10-19 11:15 | NUR ---
1100 PT DISCHARGED HOME TO [facility]IA [facility]SP[facility] WITH [employer] W/C. WOUND VAC CHANGED TO HOME VAC. DRESSING [employer] AT TIME OF D/C. NO NEW CHANGES OR CONCERNS.
== END 2020-10-19 10:52 | DRG 617 ==
LOC: ER 10:24 → MEDS 16:29 → ENPENDDIS 10-18 13:03 → MEDS 10-19 10:52
PROVIDERS: Emergency Medicine; Family Medicine; Nurse Practitioner Acute Care; Orthopaedic Surgery; Student in an Organized Health Care Education/Training Program; ADMIT Internal Medicine
PROC: 0Y6N0Z8 Detachment at Left Foot, Complete 5th Ray, Open Approach (ICD-10-PCS; principal; 2020-10-15 12:30)
DX: E11.69 Type 2 diabetes mellitus with other specified complication (principal); L03.116 Cellulitis of left lower limb; M86.172 Other acute osteomyelitis, left ankle and foot; G93.40 Encephalopathy, unspecified; L02.612 Cutaneous abscess of left foot; Z66 Do not resuscitate; Z20.822 Contact with and (suspected) exposure to COVID-19; E11.628 Type 2 diabetes mellitus with other skin complications; N40.0 Benign prostatic hyperplasia without lower urinary tract symptoms; N18.30 Chronic kidney disease, stage 3 unspecified; G82.50 Quadriplegia, unspecified; G65.0 Sequelae of Guillain-Barre syndrome; E11.22 Type 2 diabetes mellitus with diabetic chronic kidney disease; K21.9 Gastro-esophageal reflux disease without esophagitis; I12.9 Hypertensive chronic kidney disease with stage 1 through stage 4 chronic kidney disease, or unspecified chronic kidney disease; E78.5 Hyperlipidemia, unspecified; G47.33 Obstructive sleep apnea (adult) (pediatric); J45.909 Unspecified asthma, uncomplicated; E66.01 Morbid (severe) obesity due to excess calories; M10.9 Gout, unspecified; N31.9 Neuromuscular dysfunction of bladder, unspecified; F17.210 Nicotine dependence, cigarettes, uncomplicated; Z68.37 Body mass index [BMI] 37.0-37.9, adult; Z88.1 Allergy status to other antibiotic agents; Z91.013 Allergy to seafood; Z71.6 Tobacco abuse counseling; Z88.8 Allergy status to other drugs, medicaments and biological substances; Z79.84 Long term (current) use of oral hypoglycemic drugs; Z79.899 Other long term (current) drug therapy; Z98.890 Other specified postprocedural states; Z89.511 Acquired absence of right leg below knee
CPT/HCPCS: 36415; 70450; 73718; 80048; 80053; 82947; 83036; 85025; 85610; 85730; 87040; 87071; 87075; 87077; 87186; 87205; 88305; 88311; 93005; 93010; 94660; 94762; 96365; 99284-25; A9270; J1650; J2370; J2405; J2543; J2704; J3010; J7030; J7050; J7120; U0004

== ENCOUNTER 2020-10-22 01:09 | Day surgery (SDC) | payer OTHER ==
[~2020-10-22 01:09] MED LIST changes: +ACET500 PO; +FINA5 PO; +FURO20 PO; +HUMALOG KW100 UNIT/1 SC; +LINE600 PO; +METAMUCIL POWD575 GM PO; +METTREX2.5 PO; +ONDA4 PO; +OXYC5 PO; +PRAZ5 PO; +SEMGLEE PE100 UNIT/1 SC
== END 2020-10-22 23:39 | disposition home or self-care (01) ==
LOC: WOUND 01:09
DX: E11.621 Type 2 diabetes mellitus with foot ulcer (principal); L97.524 Non-pressure chronic ulcer of other part of left foot with necrosis of bone; L97.322 Non-pressure chronic ulcer of left ankle with fat layer exposed; E11.51 Type 2 diabetes mellitus with diabetic peripheral angiopathy without gangrene
CPT/HCPCS: A9270

== ENCOUNTER 2020-10-25 02:59 | Day surgery (SDC) | payer OTHER | END 2020-10-25 12:00 | disposition home or self-care (01) | LOC: WOUND 02:59 | DX: Z89.422 Acquired absence of other left toe(s) (principal) ==

== ENCOUNTER 2020-10-27 02:47 | Day surgery (SDC) | payer OTHER ==
[~2020-10-27 02:47] MED LIST changes: -ALBU90OI6 INH; -Atarax10 MG PO; -BENADRYL25 MG; -BISA10S; -BISM300CH; -COLCHICINE0.6 MG; -Calcium Carbon500 MG; -DULCOLAX400 MG/5 M; -FENTANYL1 EAC7 TOP; -GLUCAGEN; -HUMALOG KW100 UNIT/1 SQ; -HYDHCL25; -INSULANPEN SC; -LIDO700A20 TOP; -LOPE2C; -METAMUCIL POWD575 GM; -METR500; -MUPIROCIN TP; -SEMGLEE PE100 UNIT/1 SQ; -SULFAMETHOXAZO1 EAC1 UD
[2020-10-27] MEDS ORDERED: LINE600 PO (16:39)
[2020-10-27] MEDS ORDERED: LISI20 PO (16:40)
[2020-10-27] MEDS ORDERED: METAMUCIL POWD575 GM (16:41)
[2020-10-27] MEDS ORDERED: INSULANPEN SC (16:43)
[2020-10-27] MEDS ORDERED: SULFAMETHOXAZO1 EAC1 UD (16:44)
[2020-10-27] MEDS ORDERED: COLCHICINE0.6 MG (16:46)
[2020-10-27] MEDS ORDERED: GLUCAGEN (16:47)
[2020-10-27] MEDS ORDERED: Atarax10 MG PO (16:48)
[2020-10-27] MEDS ORDERED: FENTANYL1 EAC7 TOP (16:49)
== END 2020-10-27 23:14 | disposition home or self-care (01) ==
LOC: WOUND 02:47
DX: E11.621 Type 2 diabetes mellitus with foot ulcer (principal); L97.524 Non-pressure chronic ulcer of other part of left foot with necrosis of bone; L97.322 Non-pressure chronic ulcer of left ankle with fat layer exposed; M79.672 Pain in left foot; E11.51 Type 2 diabetes mellitus with diabetic peripheral angiopathy without gangrene
CPT/HCPCS: G0463

== ENCOUNTER 2020-10-27 15:24 | Emergency (ER) | payer OTHER ==
[~2020-10-27] VITALS: Ht 180.3 cm; Wt 113.8 kg
[2020-10-27 16:01] LABS: BASOPHILS ABSOLUTE AUTO 0.05 K/mm3 (0.00-0.23); BASOPHILS PERCENT AUTO 0 % (0-2); EOSINOPHILS ABSOLUTE AUTO 0.34 K/mm3 (0.00-0.68); EOSINOPHILS PERCENT AUTO 3 % (0-6); Hematocrit 40.9 % (37.0-53.0); Hemoglobin 13.3 g/dL (13.5-17.5); IMMATURE GRAN ABSOLUTE AUTO 0.04 K/mm3 (0.00-0.10); IMMATURE GRAN PERCENT AUTO 0 % (0-1); LYMPHOCYTES ABSOLUTE AUTO 1.19 K/mm3 (0.84-5.20); LYMPHOCYTES PERCENT AUTO 11 % (21-46); MONOCYTES PERCENT AUTO 5 % (4-13); Mean Corpuscular HGB 25.6 pg (26.0-34.0); Mean Corpuscular HGB Conc 32.5 g/dL (31.5-36.5); Mean Corpuscular Volume 79 fL (80-100); Mean Platelet Volume 9.3 fL (9.1-12.4); NEUTROPHILS ABSOLUTE AUTO 8.98 K/mm3 (1.96-9.15); NEUTROPHILS PERCENT AUTO 80 % (41-73); Platelet Count 313 K/mm3 (150-400); Red Blood Cell Count 5.19 M/mm3 (4.30-5.90)
[2020-10-27 16:19] LABS: Alanine Aminotransfer (ALT/SGP 25 U/L (12-78); Albumin, Blood 2.7 g/dL (3.4-5.0); Albumin/Globulin Ratio 0.5 (0.8-1.8); Alk Phos 101 U/L (50-136); Anion Gap 7 mmol/L (6-16); Aspartate Aminotrans (AST/SGOT 11 U/L (12-37); Bilirubin, Total 0.5 mg/dL (0.1-1.0); Blood Urea Nitrogen 15 mg/dL (8-24); Bun/Creatinine Ratio 13.9 (12.0-20.0); CO2, Blood 23 mmol/L (21-32); Calcium, Blood 9.2 mg/dL (8.5-10.1); Chloride, Blood 99 mmol/L (98-108); Creatinine, Blood 1.08 mg/dL (0.60-1.20); Globulin, Blood 5.9 g/dL (2.2-4.0); Glomerular Filtration Rate >60 (60-); Glucose, Blood 275 mg/dL (70-99); Potassium, Blood 4.6 mmol/L (3.5-5.5); Sodium, Blood 129 mmol/L (136-145); Total Protein, Blood 8.6 g/dL (6.4-8.2)
[2020-10-27] MEDS ORDERED: LINE600 PO (16:39)
[2020-10-27] MEDS ORDERED: LISI20 PO (16:40)
[2020-10-27] MEDS ORDERED: METAMUCIL POWD575 GM (16:41)
[2020-10-27] MEDS ORDERED: INSULANPEN SC (16:43)
[2020-10-27] MEDS ORDERED: SULFAMETHOXAZO1 EAC1 UD (16:44)
[2020-10-27] MEDS ORDERED: COLCHICINE0.6 MG (16:46)
[2020-10-27] MEDS ORDERED: GLUCAGEN (16:47)
[2020-10-27] MEDS ORDERED: Atarax10 MG PO (16:48)
[2020-10-27] MEDS ORDERED: FENTANYL1 EAC7 TOP (16:49)
== END 2020-10-27 20:08 | disposition home or self-care (01) ==
LOC: ER 15:24
PROVIDERS: Physician Assistant
DX: Z48.01 Encounter for change or removal of surgical wound dressing (principal); R00.0 Tachycardia, unspecified; E11.9 Type 2 diabetes mellitus without complications; I10 Essential (primary) hypertension; J45.909 Unspecified asthma, uncomplicated; G47.33 Obstructive sleep apnea (adult) (pediatric); F17.210 Nicotine dependence, cigarettes, uncomplicated; Z91.013 Allergy to seafood; Z91.048 Other nonmedicinal substance allergy status; Z88.1 Allergy status to other antibiotic agents; Z79.4 Long term (current) use of insulin
CPT/HCPCS: 36415; 80053; 85025; 93005; 93010; 96374; 99283-25; A9270; J1885; J7030

== ENCOUNTER → 2020-10-27 | Outpatient (CLI) | payer OTHER ==
[~2020-10-27] MED LIST changes: +ALBU90OI6 INH; +Atarax10 MG PO; +BENADRYL25 MG; +BISA10S; +BISM300CH; +COLCHICINE0.6 MG; +Calcium Carbon500 MG; +DULCOLAX400 MG/5 M; +FENTANYL1 EAC7 TOP; +GLUCAGEN; +HUMALOG KW100 UNIT/1 SQ; +HYDHCL25; +INSULANPEN SC; +LIDO700A20 TOP; +LOPE2C; +METAMUCIL POWD575 GM; +METR500; +MUPIROCIN TP; +SEMGLEE PE100 UNIT/1 SQ; +SULFAMETHOXAZO1 EAC1 UD
== END | disposition home or self-care (01) ==
LOC: LAB SHORT 19:13 → LAB 19:13
DX: N39.0 Urinary tract infection, site not specified (principal)
CPT/HCPCS: 87077; 87086; 87147; 87186

== ENCOUNTER 2020-10-29 00:54 | Day surgery (SDC) | payer OTHER ==
[~2020-10-29 00:54] MED LIST changes: +Atarax10 MG PO; +COLCHICINE0.6 MG; +FENTANYL1 EAC7 TOP; +GLUCAGEN; +INSULANPEN SC; +METAMUCIL POWD575 GM; +SULFAMETHOXAZO1 EAC1 UD
== END 2020-10-29 23:56 | disposition home or self-care (01) ==
LOC: WOUND 00:54
DX: E11.621 Type 2 diabetes mellitus with foot ulcer (principal); L97.524 Non-pressure chronic ulcer of other part of left foot with necrosis of bone; L97.322 Non-pressure chronic ulcer of left ankle with fat layer exposed; M79.672 Pain in left foot; E11.51 Type 2 diabetes mellitus with diabetic peripheral angiopathy without gangrene
CPT/HCPCS: 73590; 73630; 87071; 87075; 87077; 87147; 87186; 87205; A9270

== ENCOUNTER 2020-11-01 02:36 | Day surgery (SDC) | payer OTHER | END 2020-11-01 23:43 | disposition home or self-care (01) | LOC: WOUND 02:36 | DX: E11.621 Type 2 diabetes mellitus with foot ulcer (principal); L97.529 Non-pressure chronic ulcer of other part of left foot with unspecified severity; K21.9 Gastro-esophageal reflux disease without esophagitis; E78.5 Hyperlipidemia, unspecified; I10 Essential (primary) hypertension; E11.40 Type 2 diabetes mellitus with diabetic neuropathy, unspecified; M19.90 Unspecified osteoarthritis, unspecified site; M10.9 Gout, unspecified; F17.210 Nicotine dependence, cigarettes, uncomplicated; G47.33 Obstructive sleep apnea (adult) (pediatric); Z89.422 Acquired absence of other left toe(s); Z79.4 Long term (current) use of insulin; Z91.013 Allergy to seafood; Z89.519 Acquired absence of unspecified leg below knee | CPT/HCPCS: G0463 ==

== ENCOUNTER 2020-11-03 07:43 | Day surgery (SDC) | payer OTHER ==
[~2020-11-03] VITALS: Ht 182.9 cm; Wt 129.7 kg
[2020-11-03] MEDS ORDERED: LINE600 PO (09:10)
[2020-11-03] MEDS ORDERED: METR500 ×2 (09:11→09:17)
[2020-11-03] MEDS ORDERED: HUMALOG KW100 UNIT/1 SQ (09:17)
[2020-11-03] MEDS ORDERED: SULTRIDS PO (09:18)
[2020-11-03] MEDS ORDERED: MUPIROCIN TP (09:25)
[2020-11-03] MEDS ORDERED: BISA10S (09:27)
[2020-11-03] MEDS ORDERED: ALBU90OI6 INH (09:27)
[2020-11-03] MEDS ORDERED: BISM300CH (09:28)
[2020-11-03] MEDS ORDERED: Calcium Carbon500 MG (09:28)
[2020-11-03] MEDS ORDERED: BENADRYL25 MG (09:29)
[2020-11-03] MEDS ORDERED: COLCHICINE0.6 MG (09:29)
[2020-11-03] MEDS ORDERED: GLUCAGEN (09:30)
[2020-11-03] MEDS ORDERED: LIDO700A20 TOP (09:31)
[2020-11-03] MEDS ORDERED: LOPE2C (09:31)
[2020-11-03] MEDS ORDERED: HYDHCL25 (09:31)
[2020-11-03] MEDS ORDERED: METAMUCIL POWD575 GM PO (09:32)
[2020-11-03] MEDS ORDERED: DULCOLAX400 MG/5 M (09:32)
--- NOTE | 2020-11-03 11:27 | NUR ---
PATIENT TOLERATING PO FLUIDS, REQUESTING FOOD. INCISION SITE COVERED WITH ONE BANDAID. SCANT BRIGHT RED BLEEDING. PATIENT STATES PAIN IS 1/10.
== END 2020-11-03 23:15 | disposition home or self-care (01) ==
LOC: ORSCMMR 07:43
PROVIDERS: Otolaryngology
PROC: 0HB1XZX Excision of Face Skin, External Approach, Diagnostic (ICD-10-PCS; principal; 2020-11-03 09:30)
DX: C44.311 Basal cell carcinoma of skin of nose (principal); I10 Essential (primary) hypertension; J44.9 Chronic obstructive pulmonary disease, unspecified; F17.210 Nicotine dependence, cigarettes, uncomplicated; K21.9 Gastro-esophageal reflux disease without esophagitis; E11.9 Type 2 diabetes mellitus without complications; E78.5 Hyperlipidemia, unspecified; Z86.73 Personal history of transient ischemic attack (TIA), and cerebral infarction without residual deficits; E66.01 Morbid (severe) obesity due to excess calories; Z68.38 Body mass index [BMI] 38.0-38.9, adult; Z79.84 Long term (current) use of oral hypoglycemic drugs; Z79.899 Other long term (current) drug therapy
CPT/HCPCS: 82947; 88305; 88331; 88332; A9270; J1100; J2250; J2405; J2704; J3010; J7120

== ENCOUNTER 2020-11-05 07:30 | Inpatient (IN) | payer OTHER ==
[~2020-11-05] VITALS: Ht 182.9 cm; Wt 111.6 kg
[~2020-11-05 07:30] MED LIST changes: +ALBU90OI6 INH; +BENADRYL25 MG; +BISA10S; +BISM300CH; +Calcium Carbon500 MG; +DULCOLAX400 MG/5 M; +HUMALOG KW100 UNIT/1 SQ; +HYDHCL25; +LIDO700A20 TOP; +LOPE2C; +METR500; +MUPIROCIN TP
--- NOTE | 2020-11-05 11:34 | NUR ---
Patient is in the lobby outside of day surgery and stops me and tells me about his upcoming amputation. He tells a few jokes about it then tells me that he he has struggled for many years with health issues and he has his concerns about this surgery. I provide therapeutic listening and pre-surgery prayer. patient responds well and shows signs of increased peace. I will continue to remain available to patient and family.
[2020-11-05] MEDS ORDERED: SEMGLEE PE100 UNIT/1 SQ (12:08)
[2020-11-05] MEDS ORDERED: INSULANPEN SC (12:10)
--- NOTE | 2020-11-05 13:49 | NUR ---
PT TO SDS VIA , ABLE TO TX SELF TO BED FROM s ASSSISTANCE. PT REPORTS NPO SINCE MIDNIGHT. DRESSING NOTED TO LLE. History, Chart, Medications and Allergies reviewed before start of procedure. Lungs clear T/O to Auscultation. CHEM BG, 149. NEW ATTENDS PLACED. SLEEPS INTERMITTENTLY.
--- NOTE | 2020-11-05 18:29 | NUR ---
POST OP: REPORT RECEIVED FROM FOLDER INSPECTOR DAVE, PT TO UNIT AT ABOUT 1815. PT IS A/O, VSS. LLE WOUND WNL AND ELEVATED ON PILLOWS AND IN STUMP SOCK. PT ASKING FOR SOMETHING TO DRINK, WILL CTM. CALL LIGHT IN REACH.
[2020-11-06 05:46] LABS: BASOPHILS ABSOLUTE AUTO 0.01 K/mm3 (0.00-0.23); BASOPHILS PERCENT AUTO 0 % (0-2); EOSINOPHILS ABSOLUTE AUTO 0.01 K/mm3 (0.00-0.68); EOSINOPHILS PERCENT AUTO 0 % (0-6); Hematocrit 37.6 % (37.0-53.0); Hemoglobin 11.9 g/dL (13.5-17.5); IMMATURE GRAN ABSOLUTE AUTO 0.06 K/mm3 (0.00-0.10); IMMATURE GRAN PERCENT AUTO 1 % (0-1); LYMPHOCYTES PERCENT AUTO 9 % (21-46); MONOCYTES ABSOLUTE AUTO 0.33 K/mm3 (0.16-1.47); MONOCYTES PERCENT AUTO 4 % (4-13); Mean Corpuscular HGB 25.2 pg (26.0-34.0); Mean Corpuscular HGB Conc 31.6 g/dL (31.5-36.5); Mean Corpuscular Volume 80 fL (80-100); Mean Platelet Volume 8.7 fL (9.1-12.4); NEUTROPHILS ABSOLUTE AUTO 7.68 K/mm3 (1.96-9.15); NEUTROPHILS PERCENT AUTO 86 % (41-73); Platelet Count 444 K/mm3 (150-400); RDW Coefficient Variation 15.2 % (11.7-14.2); RDW Standard Deviation 43.7 fL (35.1-46.3); Red Blood Cell Count 4.73 M/mm3 (4.30-5.90); White Blood Cell Count 8.89 K/mm3 (4.00-11.30)
[2020-11-06 06:13] LABS: Anion Gap 9 mmol/L (6-16); Blood Urea Nitrogen 21 mg/dL (8-24); Bun/Creatinine Ratio 20.8 (12.0-20.0); CO2, Blood 22 mmol/L (21-32); Calcium, Blood 8.4 mg/dL (8.5-10.1); Chloride, Blood 100 mmol/L (98-108); Creatinine, Blood 1.01 mg/dL (0.60-1.20); Glomerular Filtration Rate >60 (60-); Glucose, Blood 302 mg/dL (70-99); Sodium, Blood 131 mmol/L (136-145)
--- NOTE | 2020-11-06 07:47 | NUR ---
SHIFT SUMMARY: GARIMA IS A&OX4. VSS, NO ACUTE EVENTS OVERNIGHT, TOLERATING PO INTAKE WELL. HE DOES REQUIRE ASSISTANCE WITH THE URINAL, STATING THAT HE USUALLY SITS UP AT THE SIDE OF THE BED IN ORDER TO USE THE URINAL INDEPENDENTLY. IV TO LEFT HAND PATENT. STUMP SOCK IN PLACE TO LLE, SELVIN PATENT. HE IS LYING IN BED WITH THE CALL LIGHT IN REACH. REPORT GIVEN TO DAY SHIFT RN.
--- NOTE | 2020-11-06 17:51 | NUR ---
SHIFT SUMMARY PT A&OX4, VSS/2L NC BASELINE, CBGS AC/HS COV REQ, POD1 L BKA, DRESSING CHANGED/STUMP SOCK ON/ELEVATED ON 2 PILLOWS, WORKED WITH PT AND DID WELL WITH BEASY GLYDER BOARD (WOULD LIKE ONE TO USE AT HOME), REPOSITIONS SELF WELL. VOIDING WELL, NEEDS ASSIST WITH URINAL. WILL REPORT TO ONCOMING NOC RN.
--- NOTE | 2020-11-07 05:45 | NUR ---
SHIFT SUMMARY: GARIMA IS A&OX4. VSS, NO ACUTE EVENTS OVERNIGHT. HE IS TOLERATING PO INTAKE WELL, ABLE TO TURN AND REPOSITION HIMSELF INDEPENDENTLY, STUMP SOCK C/D&I. IV TO LEFT HAND PATENT. HE IS LYING IN BED WITH THE CALL LIGHT IN REACH. WILL REPORT TO DAY SHIFT RN.
[2020-11-07 06:18] LABS: BASOPHILS ABSOLUTE AUTO 0.05 K/mm3 (0.00-0.23); BASOPHILS PERCENT AUTO 1 % (0-2); EOSINOPHILS ABSOLUTE AUTO 0.19 K/mm3 (0.00-0.68); EOSINOPHILS PERCENT AUTO 3 % (0-6); Hemoglobin 11.8 g/dL (13.5-17.5); IMMATURE GRAN ABSOLUTE AUTO 0.03 K/mm3 (0.00-0.10); IMMATURE GRAN PERCENT AUTO 1 % (0-1); LYMPHOCYTES ABSOLUTE AUTO 2.17 K/mm3 (0.84-5.20); LYMPHOCYTES PERCENT AUTO 33 % (21-46); MONOCYTES ABSOLUTE AUTO 0.41 K/mm3 (0.16-1.47); MONOCYTES PERCENT AUTO 6 % (4-13); Mean Corpuscular HGB 25.8 pg (26.0-34.0); Mean Corpuscular HGB Conc 31.9 g/dL (31.5-36.5); Mean Corpuscular Volume 81 fL (80-100); Mean Platelet Volume 8.9 fL (9.1-12.4); NEUTROPHILS ABSOLUTE AUTO 3.68 K/mm3 (1.96-9.15); NEUTROPHILS PERCENT AUTO 56 % (41-73); Platelet Count 424 K/mm3 (150-400); RDW Coefficient Variation 15.5 % (11.7-14.2); RDW Standard Deviation 45.1 fL (35.1-46.3); Red Blood Cell Count 4.57 M/mm3 (4.30-5.90); White Blood Cell Count 6.53 K/mm3 (4.00-11.30)
[2020-11-07 06:57] LABS: Alanine Aminotransfer (ALT/SGP 22 U/L (12-78); Albumin, Blood 2.4 g/dL (3.4-5.0); Albumin/Globulin Ratio 0.5 (0.8-1.8); Alk Phos 79 U/L (50-136); Anion Gap 8 mmol/L (6-16); Aspartate Aminotrans (AST/SGOT 16 U/L (12-37); Bilirubin, Total 0.2 mg/dL (0.1-1.0); Blood Urea Nitrogen 19 mg/dL (8-24); CO2, Blood 25 mmol/L (21-32); Calcium, Blood 8.4 mg/dL (8.5-10.1); Chloride, Blood 101 mmol/L (98-108); Globulin, Blood 4.9 g/dL (2.2-4.0); Glomerular Filtration Rate >60 (60-); Glucose, Blood 175 mg/dL (70-99); Magnesium, Blood 1.7 mg/dL (1.6-2.4); Phosphorus, Blood 3.3 mg/dL (2.5-4.9); Potassium, Blood 4.4 mmol/L (3.5-5.5); Sodium, Blood 134 mmol/L (136-145); Total Protein, Blood 7.3 g/dL (6.4-8.2)
--- NOTE | 2020-11-07 18:45 | NUR ---
SHIFT SUMMARY PT HAS BEEN A/O X4. TOLERATING PO INTAKE AND VOIDING. NEEDS ENCOURAGEMENT TO USE URINAL IND. PAIN MANAGED WITH PO PAIN MEDICATION PER ORDERS. PT WORKED WITH THERAPY TODAY AND WAS ABLE TO TRANSFER TO CHAIR USING SLIDER BOARD. DRESSING TO [facility]. NO ACUTE CHANGES TODAY.
--- NOTE | 2020-11-07 19:19 | NUR ---
RECEIVED REPORT AND ASSUMED CARE OF PT. HE IS LYING IN BED WITH THE CPAP ON. READY FOR PAIN MEDICATION IT IS AVAILABLE. HE IS USING THE URINAL INDEPENDENTLY. DENIES ANY OTHER NEEDS AT THIS TIME. LEON.
--- NOTE | 2020-11-08 05:43 | NUR ---
SHIFT SUMMARY: GARIMA IS A&OX4. VSS, NO ACUTE EVENTS OVERNIGHT. HE IS TOLERATING PO INTAKE WELL, USING THE URINAL AND ABLE TO TURN AND REPOSITION HIMSELF INDEPENDENTLY. STUMP SOCK TO LLE C/D&I. IV TO L FOREARM PATENT, REPORTS ADEQUATE PAIN CONTROL WITH 10 MG OF OXYCODONE. HE IS LYING IN BED WITH THE CALL LIGHT IN REACH. WILL REPORT TO DAY SHIFT RN.
--- NOTE | 2020-11-08 10:29 | NUR ---
REPORT GIVEN TO [facility] RN. PT & [facility] TRANSPORTED TO [facility]ERY [facility].
[2020-11-08 15:03] LABS: SARS-Cov-2 (COVID-19) PCR, MMC NEGATIVE (NEGATIVE)
--- NOTE | 2020-11-08 18:17 | NUR ---
CONTACTED SYLVIARN AT [facility] AND GAVE REPORT.
--- NOTE | 2020-11-08 19:16 | NUR ---
PT DISCHARGED TO [facility]. PT PICKED UP BY [facility]. DISCHARGE PAPERWORK SENT WITH REFUSE COLLECTOR SUPERVISOR FOR GROUP HOME.
== END 2020-11-08 19:16 | DRG 474 ==
LOC: PRE IP 10:00 → SURS 10:30 → ORSCIP 11-08 10:30
PROVIDERS: Family Medicine; Hospitalist; ADMIT Orthopaedic Surgery
PROC: 0Y6J0Z1 Detachment at Left Lower Leg, High, Open Approach (ICD-10-PCS; principal; 2020-11-05 13:30)
DX: M00.072 Staphylococcal arthritis, left ankle and foot (principal); L89.524 Pressure ulcer of left ankle, stage 4; G82.50 Quadriplegia, unspecified; M86.172 Other acute osteomyelitis, left ankle and foot; E87.1 Hypo-osmolality and hyponatremia; G61.0 Guillain-Barre syndrome; E11.69 Type 2 diabetes mellitus with other specified complication; Z20.822 Contact with and (suspected) exposure to COVID-19; B95.62 Methicillin resistant Staphylococcus aureus infection as the cause of diseases classified elsewhere; E11.40 Type 2 diabetes mellitus with diabetic neuropathy, unspecified; N40.0 Benign prostatic hyperplasia without lower urinary tract symptoms; K21.9 Gastro-esophageal reflux disease without esophagitis; M10.9 Gout, unspecified; E78.5 Hyperlipidemia, unspecified; Z66 Do not resuscitate; F17.210 Nicotine dependence, cigarettes, uncomplicated; G54.6 Phantom limb syndrome with pain; J45.909 Unspecified asthma, uncomplicated; G47.33 Obstructive sleep apnea (adult) (pediatric); I12.9 Hypertensive chronic kidney disease with stage 1 through stage 4 chronic kidney disease, or unspecified chronic kidney disease; E11.22 Type 2 diabetes mellitus with diabetic chronic kidney disease; N18.30 Chronic kidney disease, stage 3 unspecified; E66.01 Morbid (severe) obesity due to excess calories; N52.9 Male erectile dysfunction, unspecified; M54.9 Dorsalgia, unspecified; G89.29 Other chronic pain; D47.3 Essential (hemorrhagic) thrombocythemia; D64.9 Anemia, unspecified; I27.20 Pulmonary hypertension, unspecified; R00.0 Tachycardia, unspecified; Z68.33 Body mass index [BMI] 33.0-33.9, adult; Z88.1 Allergy status to other antibiotic agents; Z85.828 Personal history of other malignant neoplasm of skin; Z79.899 Other long term (current) drug therapy; Z79.82 Long term (current) use of aspirin; Z79.4 Long term (current) use of insulin; Z79.891 Long term (current) use of opiate analgesic; Z89.511 Acquired absence of right leg below knee
CPT/HCPCS: 36415; 80048; 80053; 82947; 83735; 84100; 84443; 85025; 86140; 88307; 88311; 97162; 97165; 97530; 97535; A9270; J1100; J1650; J1815; J2020; J2370; J2405; J2704; J3010; J7030; J7120; U0004

== ENCOUNTER 2021-03-14 15:59 | Emergency (ER) | payer OTHER ==
[~2021-03-14] VITALS: Ht 121.9 cm; Wt 120.2 kg
[~2021-03-14 15:59] MED LIST changes: +SEMGLEE PE100 UNIT/1 SQ
[2021-03-14 17:34] LABS: Hematocrit 46.3 % (37.0-53.0); Hemoglobin 14.3 g/dL (13.5-17.5); Mean Corpuscular HGB 21.6 pg (26.0-34.0); Mean Corpuscular HGB Conc 30.9 g/dL (31.5-36.5); Mean Corpuscular Volume 70 fL (80-100); Mean Platelet Volume 9.4 fL (9.1-12.4); Platelet Count 306 K/mm3 (150-400); RDW Coefficient Variation 17.1 % (11.7-14.2); RDW Standard Deviation 39.5 fL (35.1-46.3); Red Blood Cell Count 6.63 M/mm3 (4.30-5.90)
[2021-03-14 17:49] LABS: Alanine Aminotransfer (ALT/SGP 24 U/L (12-78); Albumin, Blood 3.3 g/dL (3.4-5.0); Albumin/Globulin Ratio 0.7 (0.8-1.8); Alk Phos 89 U/L (50-136); Anion Gap 8 mmol/L (6-16); Aspartate Aminotrans (AST/SGOT 14 U/L (12-37); Bilirubin, Total 0.3 mg/dL (0.1-1.0); Blood Urea Nitrogen 17 mg/dL (8-24); Bun/Creatinine Ratio 16.5 (12.0-20.0); CO2, Blood 23 mmol/L (21-32); Calcium, Blood 9.1 mg/dL (8.5-10.1); Chloride, Blood 103 mmol/L (98-108); Creatinine, Blood 1.03 mg/dL (0.60-1.20); Globulin, Blood 4.5 g/dL (2.2-4.0); Glomerular Filtration Rate >60 (60-); Glucose, Blood 129 mg/dL (70-99); Potassium, Blood 3.9 mmol/L (3.5-5.5); Sodium, Blood 134 mmol/L (136-145); Total Protein, Blood 7.8 g/dL (6.4-8.2); Troponin I <0.015 ng/mL (0.000-0.040)
[2021-03-14 17:54] LABS: BAND PERCENT MAN 1 % (0-8); BASOPHILS ABSOLUTE MAN 0.08 K/mm3 (0.00-0.23); BASOPHILS PERCENT MAN 1 % (0-2); EOSINOPHILS ABSOLUTE MAN 0.51 K/mm3 (0.00-0.68); EOSINOPHILS PERCENT MAN 6 % (0-6); LYMPHOCYTES % ATYPICAL MANUAL 1 % (0-0); LYMPHOCYTES ABSOLUTE MAN 2.21 K/mm3 (0.84-5.20); LYMPHOCYTES PERCENT MAN 25 % (21-46); MONOCYTES ABSOLUTE MAN 0.34 K/mm3 (0.16-1.47); MONOCYTES PERCENT MAN 4 % (4-13); NEUTROPHILS ABSOLUTE MAN 5.35 K/mm3 (1.96-9.15); SEG NEUTROPHILS PERCENT MAN 62 % (41-73); TOTAL CELLS COUNTED 100
[2021-03-14] MEDS ORDERED: Prednisone20 MG PO (19:14)
[2021-03-14] MEDS ORDERED: IPRAT-ALBUT 0.5-3 ML INH (19:14)
[2021-03-14] MEDS ORDERED: Aerochamber1 EACH MC (19:14)
== END 2021-03-14 21:16 ==
LOC: ER 15:59
PROVIDERS: Family Medicine
DX: J45.901 Unspecified asthma with (acute) exacerbation (principal); Z20.822 Contact with and (suspected) exposure to COVID-19; E11.9 Type 2 diabetes mellitus without complications; I10 Essential (primary) hypertension; E66.01 Morbid (severe) obesity due to excess calories; F17.210 Nicotine dependence, cigarettes, uncomplicated
CPT/HCPCS: 36415; 71046; 80053; 83880; 84484; 85025; 93005; 93010; 94640; 99284-25; A9270; J7512

== ENCOUNTER → 2021-09-07 | Outpatient (CLI) | payer OTHER ==
[~2021-09-07] MED LIST changes: +Aerochamber1 EACH MC; +IPRAT-ALBUT 0.5-3 ML INH; +Prednisone20 MG PO
== END | disposition home or self-care (01) ==
LOC: LAB SHORT 12:19 → LAB 12:19
DX: N30.01 Acute cystitis with hematuria (principal)
CPT/HCPCS: 87077; 87086; 87186

== ENCOUNTER → 2023-01-08 | Outpatient (CLI) | payer OTHER | LOC: LAB SHORT 11:00 → LAB 11:00 | DX: T14.8XXA Other injury of unspecified body region, initial encounter (principal) | CPT/HCPCS: 87070; 87077; 87147; 87186 ==

== ENCOUNTER 2023-01-29 21:47 | Emergency (ER) | payer OTHER ==
[~2023-01-29] VITALS: Ht 182.9 cm; Wt 136.1 kg
[2023-01-29 21:49] VITALS: BP 130/94
[2023-01-29 23:14] LABS: Source, Urine Suprapubic Cath
[2023-01-29 23:16] LABS: Bilirubin, Urine Neg (Neg); Blood, Urine 3+ (Neg); Glucose Qualitative, Urine 4+ (Neg); Ketones, Urine Neg (Neg); Leukocyte Esterase, Urine 3+ (Neg); Nitrite, Urine Neg (Neg); Protein, Urine 2+ (Neg); Specific Gravity, Urine 1.015 (1.003-1.022); Urobilinogen, Urine NORM (Normal)
[2023-01-30 02:04] LABS: Appearance, Urine Hazy (Clear); Color, Urine Yellow (P-Yellow)
[2023-01-30 02:05] LABS: Bacteria Many /hpf; Red Blood Cells, Urine 0-2 /hpf (0-2); Squamous Epithelial Cells Few /hpf (Few)
== END 2023-01-30 00:33 | disposition home or self-care (01) ==
LOC: ER 21:47
PROVIDERS: Physician Assistant
DX: T83.098A Other mechanical complication of other urinary catheter, initial encounter (principal); Y73.2 Prosthetic and other implants, materials and accessory gastroenterology and urology devices associated with adverse incidents; I10 Essential (primary) hypertension; E11.9 Type 2 diabetes mellitus without complications; J45.909 Unspecified asthma, uncomplicated; M10.9 Gout, unspecified; G47.33 Obstructive sleep apnea (adult) (pediatric); Z87.440 Personal history of urinary (tract) infections; Z99.89 Dependence on other enabling machines and devices; F17.210 Nicotine dependence, cigarettes, uncomplicated; Z79.4 Long term (current) use of insulin; Z79.84 Long term (current) use of oral hypoglycemic drugs; Z79.891 Long term (current) use of opiate analgesic; Z79.52 Long term (current) use of systemic steroids; Z79.899 Other long term (current) drug therapy; Z88.1 Allergy status to other antibiotic agents; Z91.013 Allergy to seafood; Z88.8 Allergy status to other drugs, medicaments and biological substances
CPT/HCPCS: 81001; 87086; 99283

== ENCOUNTER → 2023-02-05 | Outpatient (CLI) | payer OTHER | LOC: LAB SHORT 18:54 | DX: S39.82XA Other specified injuries of lower back, initial encounter (principal) | CPT/HCPCS: 87070 ==

== ENCOUNTER 2023-02-28 22:28 | Emergency (ER) | payer OTHER ==
[~2023-02-28] VITALS: Ht 182.9 cm; Wt 136.1 kg
[2023-02-28] MEDS ORDERED: ALOGLIPTIN25 M1 (22:38)
[2023-02-28] MEDS ORDERED: FERSU300 (22:39)
[2023-02-28] MEDS ORDERED: FOLI1 (22:40)
[2023-02-28] MEDS ORDERED: PIOG15 (22:42)
[2023-02-28] MEDS ORDERED: NAPR500 (22:42)
[2023-02-28] MEDS ORDERED: ALPR.5 (22:43)
[2023-02-28] MEDS ORDERED: TRIDERM28.4 GM (22:43)
[2023-02-28] MEDS ORDERED: STIOLTO RESPIMAT4 G1 (22:43)
[2023-02-28] MEDS ORDERED: STEGLATRO5 MG (22:43)
[2023-02-28] MEDS ORDERED: ONDA4 (22:43)
[2023-02-28 23:23] LABS: Source, Urine Suprapubic Cath
[2023-02-28 23:28] LABS: Bilirubin, Urine Neg (Neg); Blood, Urine 3+ (Neg); Glucose Qualitative, Urine 4+ (Neg); Ketones, Urine Neg (Neg); Leukocyte Esterase, Urine 3+ (Neg); Nitrite, Urine Neg (Neg); Protein, Urine 2+ (Neg); Urobilinogen, Urine NORM (Normal)
[2023-02-28 23:39] LABS: Appearance, Urine Hazy (Clear); Color, Urine Yellow (P-Yellow)
[2023-02-28 23:40] LABS: Bacteria Many /hpf; Squamous Epithelial Cells Few /hpf (Few); White Blood Cells, Urine 25-50 /hpf (0-5)
[2023-02-28] MEDS ORDERED: CEPH500 PO (23:48)
[2023-03-01 01:30] VITALS: BP 112/86
== END 2023-03-01 01:42 | disposition home or self-care (01) ==
LOC: ER 22:28
PROVIDERS: Emergency Medicine
DX: N39.0 Urinary tract infection, site not specified (principal); T83.098A Other mechanical complication of other urinary catheter, initial encounter; N31.9 Neuromuscular dysfunction of bladder, unspecified; N40.0 Benign prostatic hyperplasia without lower urinary tract symptoms; G82.50 Quadriplegia, unspecified; I10 Essential (primary) hypertension; E11.9 Type 2 diabetes mellitus without complications; F17.210 Nicotine dependence, cigarettes, uncomplicated; Z88.1 Allergy status to other antibiotic agents; Z88.8 Allergy status to other drugs, medicaments and biological substances; Z91.018 Allergy to other foods; Z79.84 Long term (current) use of oral hypoglycemic drugs; Z79.899 Other long term (current) drug therapy; Z79.51 Long term (current) use of inhaled steroids; Z79.4 Long term (current) use of insulin; Z79.52 Long term (current) use of systemic steroids
CPT/HCPCS: 81001; 87077; 87086; 87186; 99283; A9270; C2627

== ENCOUNTER 2023-05-07 14:00 | Emergency (ER) | payer OTHER ==
[~2023-05-07] VITALS: Ht 162.6 cm; Wt 136.1 kg
[~2023-05-07 14:00] MED LIST changes: +ALOGLIPTIN25 M1; +ALPR.5; +FERSU300; +FOLI1; +NAPR500; +ONDA4; +PIOG15; +STEGLATRO5 MG; +STIOLTO RESPIMAT4 G1; +TRIDERM28.4 GM
[2023-05-07 16:00] VITALS: BP 138/96
[2023-05-07 16:15] LABS: Source, Urine Clean Catch
[2023-05-07 16:25] LABS: Appearance, Urine Hazy (Clear); Bilirubin, Urine Neg (Neg); Blood, Urine 5+ (Neg); Color, Urine Yellow (P-Yellow); Glucose Qualitative, Urine 4+ (Neg); Ketones, Urine Neg (Neg); Leukocyte Esterase, Urine 3+ (Neg); Nitrite, Urine Neg (Neg); Protein, Urine 1+ (Neg); Urobilinogen, Urine NORM (Normal)
[2023-05-07 16:31] LABS: Red Blood Cells, Urine 25-50 /hpf (0-2); White Blood Cells, Urine 50-100 /hpf (0-5)
[2023-05-07 16:32] LABS: Bacteria Few /hpf; Squamous Epithelial Cells Not Seen /hpf (Few)
== END 2023-05-07 19:23 | disposition home or self-care (01) ==
LOC: ER 14:00
PROVIDERS: Physician Assistant
DX: T83.091A Other mechanical complication of indwelling urethral catheter, initial encounter (principal); Z46.6 Encounter for fitting and adjustment of urinary device; N31.9 Neuromuscular dysfunction of bladder, unspecified; N40.1 Benign prostatic hyperplasia with lower urinary tract symptoms; R33.9 Retention of urine, unspecified; N52.9 Male erectile dysfunction, unspecified; Y73.2 Prosthetic and other implants, materials and accessory gastroenterology and urology devices associated with adverse incidents; G61.0 Guillain-Barre syndrome; I10 Essential (primary) hypertension; E11.9 Type 2 diabetes mellitus without complications; J45.909 Unspecified asthma, uncomplicated; M10.9 Gout, unspecified; G47.33 Obstructive sleep apnea (adult) (pediatric); F17.210 Nicotine dependence, cigarettes, uncomplicated; Z79.4 Long term (current) use of insulin; Z79.51 Long term (current) use of inhaled steroids; Z79.84 Long term (current) use of oral hypoglycemic drugs; Z79.899 Other long term (current) drug therapy; Z88.1 Allergy status to other antibiotic agents; Z88.8 Allergy status to other drugs, medicaments and biological substances; Z91.013 Allergy to seafood
CPT/HCPCS: 81001

== ENCOUNTER 2023-09-09 14:01 | Emergency (ER) | payer OTHER ==
[~2023-09-09] VITALS: Ht 182.9 cm; Wt 142.0 kg
[2023-09-09 14:10] VITALS: BP 123/108
[2023-09-09 14:30] LABS: Source, Urine Suprapubic Cath
[2023-09-09 14:34] LABS: Appearance, Urine Hazy (Clear); Bilirubin, Urine Neg (Neg); Blood, Urine 5+ (Neg); Color, Urine Yellow (P-Yellow); Glucose Qualitative, Urine 4+ (Neg); Ketones, Urine Neg (Neg); Leukocyte Esterase, Urine 3+ (Neg); Nitrite, Urine Neg (Neg); Protein, Urine 2+ (Neg); Urobilinogen, Urine NORM (Normal)
[2023-09-09 14:48] LABS: White Blood Cells, Urine TNTC /hpf (0-5)
[2023-09-09 14:49] LABS: Bacteria Mod /hpf; Squamous Epithelial Cells Rare /hpf (Few); Yeast/Fungi Urine Rare /hpf
[2023-09-09] MEDS ORDERED: Cefpodoxime Proxetil 200 MG Tab PO ONE (15:50)
[2023-09-09] MEDS ORDERED: CEFP200 PO (16:04)
== END 2023-09-09 16:10 | disposition home or self-care (01) ==
LOC: ER 14:01
PROVIDERS: Student in an Organized Health Care Education/Training Program
DX: T83.098A Other mechanical complication of other urinary catheter, initial encounter (principal); N39.0 Urinary tract infection, site not specified; E11.9 Type 2 diabetes mellitus without complications; I10 Essential (primary) hypertension; F17.210 Nicotine dependence, cigarettes, uncomplicated; Z86.73 Personal history of transient ischemic attack (TIA), and cerebral infarction without residual deficits
CPT/HCPCS: 51705; 81001; 87086; 99283-25; A9270; C2627

== ENCOUNTER 2023-11-09 16:38 | Emergency (ER) | payer OTHER ==
[~2023-11-09] VITALS: Ht 182.9 cm; Wt 137.4 kg
[2023-11-09 17:52] LABS: Source, Urine Suprapubic Cath
[2023-11-09 17:55] LABS: Appearance, Urine Hazy (Clear); Bilirubin, Urine Neg (Neg); Blood, Urine 3+ (Neg); Glucose Qualitative, Urine 4+ (Neg); Ketones, Urine Neg (Neg); Leukocyte Esterase, Urine 3+ (Neg); Nitrite, Urine Neg (Neg); Protein, Urine 2+ (Neg); Urobilinogen, Urine NORM (Normal)
[2023-11-09 18:00] LABS: Color, Urine Pale Yellow (P-Yellow)
[2023-11-09 18:01] LABS: Amorphous Light (0-Heavy); Bacteria Many /hpf; Squamous Epithelial Cells Not Seen /hpf (Few)
[2023-11-09] MEDS ORDERED: CEPH500 PO (18:06)
[2023-11-09] MEDS ORDERED: Cephalexin Monohydrate 250 MG/5 ML UD BTL PO ONE (18:10)
[2023-11-09 18:15] VITALS: BP 123/84
[2023-11-09] MEDS ORDERED: Cephalexin Monohydrate 500 MG Cap PO ONE (18:50)
== END 2023-11-09 19:51 | disposition home or self-care (01) ==
LOC: ER 16:38
PROVIDERS: Student in an Organized Health Care Education/Training Program
DX: T83.091A Other mechanical complication of indwelling urethral catheter, initial encounter (principal); N39.0 Urinary tract infection, site not specified; T87.44 Infection of amputation stump, left lower extremity; E11.9 Type 2 diabetes mellitus without complications; I10 Essential (primary) hypertension; J45.909 Unspecified asthma, uncomplicated; F17.210 Nicotine dependence, cigarettes, uncomplicated; Z79.4 Long term (current) use of insulin; Z79.899 Other long term (current) drug therapy; Z79.84 Long term (current) use of oral hypoglycemic drugs; Z79.51 Long term (current) use of inhaled steroids; Z88.1 Allergy status to other antibiotic agents; Z91.013 Allergy to seafood; Z88.8 Allergy status to other drugs, medicaments and biological substances
CPT/HCPCS: 51700; 81001; 87077; 87086; 87186; 99283-25; A9270

== ENCOUNTER → 2023-11-09 | Outpatient (CLI) | payer OTHER ==
[~2023-11-09] MED LIST changes: +CEFP200 PO
== END | disposition home or self-care (01) ==
LOC: LAB SHORT 15:25 → LAB 15:25
DX: T14.8XXA Other injury of unspecified body region, initial encounter (principal)
CPT/HCPCS: 87070; 87075; 87077; 87147; 87186; 87205

== ENCOUNTER 2023-11-22 01:26 | Day surgery (SDC) | payer OTHER ==
[2023-11-22] MEDS ORDERED: Lidocaine HCl 4% Cream 5 GM ONE (12:22)
== END 2023-11-22 23:50 | disposition home or self-care (01) ==
LOC: WOUND 01:26
DX: E11.622 Type 2 diabetes mellitus with other skin ulcer (principal); L97.822 Non-pressure chronic ulcer of other part of left lower leg with fat layer exposed; L97.812 Non-pressure chronic ulcer of other part of right lower leg with fat layer exposed; Z89.511 Acquired absence of right leg below knee; Z89.512 Acquired absence of left leg below knee; J45.909 Unspecified asthma, uncomplicated; I10 Essential (primary) hypertension; F17.210 Nicotine dependence, cigarettes, uncomplicated
CPT/HCPCS: A6213; A9270; G0463

== ENCOUNTER 2023-11-28 01:41 | Day surgery (SDC) | payer OTHER | END 2023-11-28 22:45 | disposition home or self-care (01) | LOC: WOUND 01:41 | DX: E11.622 Type 2 diabetes mellitus with other skin ulcer (principal); L97.822 Non-pressure chronic ulcer of other part of left lower leg with fat layer exposed; L97.812 Non-pressure chronic ulcer of other part of right lower leg with fat layer exposed; Z89.511 Acquired absence of right leg below knee; Z89.522 Acquired absence of left knee; Z82.0 Family history of epilepsy and other diseases of the nervous system | CPT/HCPCS: A6213; G0463 ==

== ENCOUNTER 2023-12-07 01:33 | Day surgery (SDC) | payer OTHER ==
[2023-12-07] MEDS ORDERED: Lidocaine HCl 4% Cream 5 GM ONE (08:07)
== END 2023-12-07 22:54 | disposition home or self-care (01) ==
LOC: WOUND 01:33
DX: E11.622 Type 2 diabetes mellitus with other skin ulcer (principal); L97.822 Non-pressure chronic ulcer of other part of left lower leg with fat layer exposed; L97.812 Non-pressure chronic ulcer of other part of right lower leg with fat layer exposed; I10 Essential (primary) hypertension; G61.0 Guillain-Barre syndrome; J45.909 Unspecified asthma, uncomplicated; F17.290 Nicotine dependence, other tobacco product, uncomplicated; Z89.511 Acquired absence of right leg below knee; Z89.512 Acquired absence of left leg below knee
CPT/HCPCS: A6213; A9270; G0463

== ENCOUNTER 2023-12-27 01:02 | Day surgery (SDC) | payer OTHER ==
[2023-12-27] MEDS ORDERED: Lidocaine HCl 4% Cream 5 GM ONE (07:36)
== END 2023-12-27 22:56 | disposition home or self-care (01) ==
LOC: WOUND 01:02
DX: E11.622 Type 2 diabetes mellitus with other skin ulcer (principal); L97.822 Non-pressure chronic ulcer of other part of left lower leg with fat layer exposed; L97.812 Non-pressure chronic ulcer of other part of right lower leg with fat layer exposed; L89.891 Pressure ulcer of other site, stage 1; J45.909 Unspecified asthma, uncomplicated; G61.0 Guillain-Barre syndrome; I10 Essential (primary) hypertension; F17.210 Nicotine dependence, cigarettes, uncomplicated; T24.202D Burn of second degree of unspecified site of left lower limb, except ankle and foot, subsequent encounter; Z89.511 Acquired absence of right leg below knee; Z89.512 Acquired absence of left leg below knee
CPT/HCPCS: A6213; A9270

== ENCOUNTER 2024-01-04 03:05 | Day surgery (SDC) | payer OTHER ==
[2024-01-04] MEDS ORDERED: Lidocaine HCl 4% Cream 5 GM ONE (08:08)
== END 2024-01-04 23:32 | disposition home or self-care (01) ==
LOC: WOUND 03:05
DX: E11.622 Type 2 diabetes mellitus with other skin ulcer (principal); L97.822 Non-pressure chronic ulcer of other part of left lower leg with fat layer exposed; L97.812 Non-pressure chronic ulcer of other part of right lower leg with fat layer exposed; I10 Essential (primary) hypertension; G61.0 Guillain-Barre syndrome; J45.909 Unspecified asthma, uncomplicated; L89.891 Pressure ulcer of other site, stage 1; T24.202D Burn of second degree of unspecified site of left lower limb, except ankle and foot, subsequent encounter; N39.0 Urinary tract infection, site not specified; Z89.511 Acquired absence of right leg below knee; Z89.512 Acquired absence of left leg below knee; Z72.0 Tobacco use
CPT/HCPCS: 81001; 87077; 87086; 87186; A6213; A9270; G0463

== ENCOUNTER 2024-01-18 03:49 | Day surgery (SDC) | payer OTHER ==
[2024-01-18] MEDS ORDERED: Lidocaine HCl 4% Cream 5 GM ONE (08:06)
== END 2024-01-19 02:59 | disposition home or self-care (01) ==
LOC: WOUND 03:49
DX: E11.622 Type 2 diabetes mellitus with other skin ulcer (principal); L97.822 Non-pressure chronic ulcer of other part of left lower leg with fat layer exposed; L97.812 Non-pressure chronic ulcer of other part of right lower leg with fat layer exposed; Z89.511 Acquired absence of right leg below knee; Z89.512 Acquired absence of left leg below knee; Z72.0 Tobacco use; I10 Essential (primary) hypertension
CPT/HCPCS: A6213; A9270

== ENCOUNTER 2024-02-15 05:50 | Day surgery (SDC) | payer OTHER ==
[2024-02-15] MEDS ORDERED: Lidocaine HCl 4% Cream 5 GM ONE (08:06)
== END 2024-02-15 23:00 | disposition home or self-care (01) ==
LOC: WOUND 05:50
DX: E11.622 Type 2 diabetes mellitus with other skin ulcer (principal); L97.822 Non-pressure chronic ulcer of other part of left lower leg with fat layer exposed; L89.899 Pressure ulcer of other site, unspecified stage; I10 Essential (primary) hypertension; G61.0 Guillain-Barre syndrome; G82.50 Quadriplegia, unspecified; J45.909 Unspecified asthma, uncomplicated; F17.210 Nicotine dependence, cigarettes, uncomplicated; Z89.512 Acquired absence of left leg below knee
CPT/HCPCS: A6213; A9270

== ENCOUNTER 2024-02-22 03:27 | Day surgery (SDC) | payer OTHER ==
[2024-02-22] MEDS ORDERED: Lidocaine HCl 4% Cream 5 GM ONE (08:06)
== END 2024-02-22 23:01 | disposition home or self-care (01) ==
LOC: WOUND 03:27
DX: E11.622 Type 2 diabetes mellitus with other skin ulcer (principal); L97.812 Non-pressure chronic ulcer of other part of right lower leg with fat layer exposed; L97.822 Non-pressure chronic ulcer of other part of left lower leg with fat layer exposed; L89.891 Pressure ulcer of other site, stage 1; I10 Essential (primary) hypertension; G61.0 Guillain-Barre syndrome; F17.210 Nicotine dependence, cigarettes, uncomplicated; J45.909 Unspecified asthma, uncomplicated; Z89.512 Acquired absence of left leg below knee; Z89.511 Acquired absence of right leg below knee
CPT/HCPCS: A6213; A9270

== ENCOUNTER 2024-03-14 04:31 | Day surgery (SDC) | payer OTHER ==
[2024-03-14] MEDS ORDERED: Lidocaine HCl 4% Cream 5 GM ONE (08:11)
== END 2024-03-14 23:00 | disposition home or self-care (01) ==
LOC: WOUND 04:31
DX: E11.622 Type 2 diabetes mellitus with other skin ulcer (principal); L97.822 Non-pressure chronic ulcer of other part of left lower leg with fat layer exposed; E11.65 Type 2 diabetes mellitus with hyperglycemia; I10 Essential (primary) hypertension; J45.909 Unspecified asthma, uncomplicated; G61.0 Guillain-Barre syndrome; G82.50 Quadriplegia, unspecified; F17.210 Nicotine dependence, cigarettes, uncomplicated; Z89.512 Acquired absence of left leg below knee; Z89.511 Acquired absence of right leg below knee
CPT/HCPCS: A6213; A9270

== ENCOUNTER 2024-03-21 07:53 | Day surgery (SDC) | payer OTHER ==
[2024-03-21] MEDS ORDERED: Lidocaine HCl 4% Cream 5 GM ONE (07:56)
== END 2024-03-21 23:00 | disposition home or self-care (01) ==
LOC: WOUND 07:53
DX: E11.622 Type 2 diabetes mellitus with other skin ulcer (principal); L97.812 Non-pressure chronic ulcer of other part of right lower leg with fat layer exposed; L97.822 Non-pressure chronic ulcer of other part of left lower leg with fat layer exposed; L89.891 Pressure ulcer of other site, stage 1; I10 Essential (primary) hypertension; G61.0 Guillain-Barre syndrome; F17.210 Nicotine dependence, cigarettes, uncomplicated; J45.909 Unspecified asthma, uncomplicated; Z89.511 Acquired absence of right leg below knee; Z89.512 Acquired absence of left leg below knee
CPT/HCPCS: A6213; A9270

== ENCOUNTER 2024-04-04 03:19 | Day surgery (SDC) | payer OTHER ==
[2024-04-04] MEDS ORDERED: Lidocaine HCl 4% Cream 5 GM ONE (08:08)
== END 2024-04-04 23:00 | disposition home or self-care (01) ==
LOC: WOUND 03:19
DX: E11.622 Type 2 diabetes mellitus with other skin ulcer (principal); L97.823 Non-pressure chronic ulcer of other part of left lower leg with necrosis of muscle; L97.822 Non-pressure chronic ulcer of other part of left lower leg with fat layer exposed; L97.812 Non-pressure chronic ulcer of other part of right lower leg with fat layer exposed; Z89.511 Acquired absence of right leg below knee; Z89.512 Acquired absence of left leg below knee; Z72.0 Tobacco use
CPT/HCPCS: A6213; A9270

== ENCOUNTER 2024-04-11 06:14 | Day surgery (SDC) | payer OTHER ==
[2024-04-11] MEDS ORDERED: Lidocaine HCl 4% Cream 5 GM ONE (08:59)
== END 2024-04-11 23:00 | disposition home or self-care (01) ==
LOC: WOUND 06:14
DX: E11.622 Type 2 diabetes mellitus with other skin ulcer (principal); L97.812 Non-pressure chronic ulcer of other part of right lower leg with fat layer exposed; L97.823 Non-pressure chronic ulcer of other part of left lower leg with necrosis of muscle; L89.892 Pressure ulcer of other site, stage 2; Z89.511 Acquired absence of right leg below knee; Z89.512 Acquired absence of left leg below knee; Z72.0 Tobacco use
CPT/HCPCS: A6213; A9270

== ENCOUNTER 2024-04-18 03:47 | Day surgery (SDC) | payer OTHER ==
[2024-04-18] MEDS ORDERED: Lidocaine HCl 4% Cream 5 GM ONE (08:41)
== END 2024-04-18 23:00 | disposition home or self-care (01) ==
LOC: WOUND 03:47
DX: E11.622 Type 2 diabetes mellitus with other skin ulcer (principal); L97.825 Non-pressure chronic ulcer of other part of left lower leg with muscle involvement without evidence of necrosis; L97.812 Non-pressure chronic ulcer of other part of right lower leg with fat layer exposed; L89.893 Pressure ulcer of other site, stage 3; G82.50 Quadriplegia, unspecified; Z89.512 Acquired absence of left leg below knee; Z89.511 Acquired absence of right leg below knee; Z72.0 Tobacco use
CPT/HCPCS: A6213; A9270

== ENCOUNTER 2024-05-02 03:50 | Day surgery (SDC) | payer OTHER ==
[2024-05-02] MEDS ORDERED: Lidocaine HCl 4% Cream 5 GM ONE (08:32)
== END 2024-05-02 23:00 | disposition home or self-care (01) ==
LOC: WOUND 03:50
DX: E11.622 Type 2 diabetes mellitus with other skin ulcer (principal); L97.823 Non-pressure chronic ulcer of other part of left lower leg with necrosis of muscle; L97.812 Non-pressure chronic ulcer of other part of right lower leg with fat layer exposed; Z89.511 Acquired absence of right leg below knee; Z89.512 Acquired absence of left leg below knee; Z72.0 Tobacco use
CPT/HCPCS: A6213; A9270

== ENCOUNTER 2024-05-09 02:06 | Day surgery (SDC) | payer OTHER ==
[2024-05-09] MEDS ORDERED: Lidocaine HCl 4% Cream 5 GM ONE (08:41)
== END 2024-05-09 23:00 | disposition home or self-care (01) ==
LOC: WOUND 02:06
DX: E11.622 Type 2 diabetes mellitus with other skin ulcer (principal); L97.823 Non-pressure chronic ulcer of other part of left lower leg with necrosis of muscle; Z89.511 Acquired absence of right leg below knee; Z89.512 Acquired absence of left leg below knee; Z72.0 Tobacco use
CPT/HCPCS: A6213; A9270

== ENCOUNTER 2024-05-16 05:02 | Day surgery (SDC) | payer OTHER ==
[2024-05-16] MEDS ORDERED: Lidocaine HCl 4% Cream 5 GM ONE (08:23)
== END 2024-05-16 23:00 | disposition home or self-care (01) ==
LOC: WOUND 05:02
DX: E11.622 Type 2 diabetes mellitus with other skin ulcer (principal); L97.823 Non-pressure chronic ulcer of other part of left lower leg with necrosis of muscle; Z89.511 Acquired absence of right leg below knee; Z72.0 Tobacco use
CPT/HCPCS: A6213; A9270

== ENCOUNTER 2024-05-23 04:02 | Day surgery (SDC) | payer OTHER ==
[2024-05-23] MEDS ORDERED: Lidocaine HCl 4% Cream 5 GM ONE (08:59)
== END 2024-05-23 23:00 | disposition home or self-care (01) ==
LOC: WOUND 04:02
DX: E11.622 Type 2 diabetes mellitus with other skin ulcer (principal); L97.823 Non-pressure chronic ulcer of other part of left lower leg with necrosis of muscle; L97.829 Non-pressure chronic ulcer of other part of left lower leg with unspecified severity; L89.313 Pressure ulcer of right buttock, stage 3; Z89.511 Acquired absence of right leg below knee; Z89.512 Acquired absence of left leg below knee; Z72.0 Tobacco use
CPT/HCPCS: A6213; A9270

== ENCOUNTER 2024-05-30 03:10 | Day surgery (SDC) | payer OTHER ==
[2024-05-30] MEDS ORDERED: Lidocaine HCl 4% Cream 5 GM ONE (08:11)
== END 2024-05-30 23:00 | disposition home or self-care (01) ==
LOC: WOUND 03:10
DX: E11.622 Type 2 diabetes mellitus with other skin ulcer (principal); L97.823 Non-pressure chronic ulcer of other part of left lower leg with necrosis of muscle; L97.825 Non-pressure chronic ulcer of other part of left lower leg with muscle involvement without evidence of necrosis; L89.313 Pressure ulcer of right buttock, stage 3; Z89.511 Acquired absence of right leg below knee; Z89.512 Acquired absence of left leg below knee; Z72.0 Tobacco use
CPT/HCPCS: A6213; A9270

== ENCOUNTER 2024-06-06 03:46 | Day surgery (SDC) | payer OTHER ==
[2024-06-06] MEDS ORDERED: Lidocaine HCl 4% Cream 5 GM ONE (07:48)
== END 2024-06-06 23:00 | disposition home or self-care (01) ==
LOC: WOUND 03:46
DX: E11.622 Type 2 diabetes mellitus with other skin ulcer (principal); L97.825 Non-pressure chronic ulcer of other part of left lower leg with muscle involvement without evidence of necrosis; L89.312 Pressure ulcer of right buttock, stage 2; Z89.511 Acquired absence of right leg below knee; Z89.512 Acquired absence of left leg below knee; Z72.0 Tobacco use
CPT/HCPCS: A6213; A9270

== ENCOUNTER 2024-06-13 00:24 | Day surgery (SDC) | payer OTHER ==
[2024-06-13] MEDS ORDERED: Lidocaine HCl 4% Cream 5 GM ONE ×2 (07:46→07:52)
== END 2024-06-13 23:00 | disposition home or self-care (01) ==
LOC: WOUND 00:24
DX: E11.622 Type 2 diabetes mellitus with other skin ulcer (principal); L97.823 Non-pressure chronic ulcer of other part of left lower leg with necrosis of muscle; L89.892 Pressure ulcer of other site, stage 2; L89.312 Pressure ulcer of right buttock, stage 2; Z89.511 Acquired absence of right leg below knee; Z72.0 Tobacco use
CPT/HCPCS: A6213; A9270

== ENCOUNTER 2024-06-20 03:21 | Day surgery (SDC) | payer OTHER ==
[2024-06-20] MEDS ORDERED: Lidocaine HCl 4% Cream 5 GM ONE (08:01)
== END 2024-06-20 23:00 | disposition home or self-care (01) ==
LOC: WOUND 03:21
DX: E11.622 Type 2 diabetes mellitus with other skin ulcer (principal); L97.823 Non-pressure chronic ulcer of other part of left lower leg with necrosis of muscle; L89.892 Pressure ulcer of other site, stage 2; L89.312 Pressure ulcer of right buttock, stage 2; Z89.511 Acquired absence of right leg below knee; Z89.512 Acquired absence of left leg below knee; Z72.0 Tobacco use
CPT/HCPCS: A6213; A9270

== ENCOUNTER 2024-06-27 02:34 | Day surgery (SDC) | payer OTHER ==
[2024-06-27] MEDS ORDERED: Lidocaine HCl 4% Cream 5 GM ONE (07:46)
== END 2024-06-27 23:00 | disposition home or self-care (01) ==
LOC: WOUND 02:34
DX: E11.622 Type 2 diabetes mellitus with other skin ulcer (principal); L97.823 Non-pressure chronic ulcer of other part of left lower leg with necrosis of muscle; L89.312 Pressure ulcer of right buttock, stage 2; Z89.511 Acquired absence of right leg below knee; Z89.512 Acquired absence of left leg below knee; Z72.0 Tobacco use
CPT/HCPCS: A6213; A9270; G0463

== ENCOUNTER 2024-07-18 02:44 | Day surgery (SDC) | payer OTHER ==
[2024-07-18] MEDS ORDERED: Lidocaine HCl 4% Cream 5 GM ONE (07:59)
== END 2024-07-18 23:00 | disposition home or self-care (01) ==
LOC: WOUND 02:44
DX: E11.622 Type 2 diabetes mellitus with other skin ulcer (principal); L97.823 Non-pressure chronic ulcer of other part of left lower leg with necrosis of muscle; L89.892 Pressure ulcer of other site, stage 2; L89.312 Pressure ulcer of right buttock, stage 2; Z89.511 Acquired absence of right leg below knee; Z89.512 Acquired absence of left leg below knee; Z72.0 Tobacco use
CPT/HCPCS: A6213; A9270

== ENCOUNTER 2024-08-15 01:28 | Day surgery (SDC) | payer OTHER ==
[2024-08-15] MEDS ORDERED: Lidocaine HCl 4% Cream 5 GM ONE (08:18)
== END 2024-08-15 23:00 | disposition home or self-care (01) ==
LOC: WOUND 01:28
DX: E11.622 Type 2 diabetes mellitus with other skin ulcer (principal); L97.822 Non-pressure chronic ulcer of other part of left lower leg with fat layer exposed; L97.825 Non-pressure chronic ulcer of other part of left lower leg with muscle involvement without evidence of necrosis; Z72.0 Tobacco use; Z89.511 Acquired absence of right leg below knee; Z89.512 Acquired absence of left leg below knee
CPT/HCPCS: A6213; A9270

== ENCOUNTER 2024-09-19 01:33 | Day surgery (SDC) | payer OTHER ==
[2024-09-19] MEDS ORDERED: Lidocaine HCl 4% Cream 5 GM ONE (08:01)
== END 2024-09-19 23:00 | disposition home or self-care (01) ==
LOC: WOUND 01:33
DX: E11.622 Type 2 diabetes mellitus with other skin ulcer (principal); L97.823 Non-pressure chronic ulcer of other part of left lower leg with necrosis of muscle; L89.892 Pressure ulcer of other site, stage 2; Z89.511 Acquired absence of right leg below knee; Z89.512 Acquired absence of left leg below knee; Z72.0 Tobacco use
CPT/HCPCS: A6213; A9270

== ENCOUNTER 2024-09-26 05:47 | Day surgery (SDC) | payer OTHER ==
[2024-09-26] MEDS ORDERED: Lidocaine HCl 4% Cream 5 GM ONE (07:47)
== END 2024-09-26 23:00 | disposition home or self-care (01) ==
LOC: WOUND 05:47
DX: E11.622 Type 2 diabetes mellitus with other skin ulcer (principal); L97.822 Non-pressure chronic ulcer of other part of left lower leg with fat layer exposed; Z89.511 Acquired absence of right leg below knee; Z89.512 Acquired absence of left leg below knee; Z72.0 Tobacco use
CPT/HCPCS: A6213; A9270

== ENCOUNTER 2024-09-29 16:02 | Emergency (ER) | payer OTHER ==
[~2024-09-29] VITALS: Ht 172.7 cm; Wt 120.2 kg
[2024-09-29 16:25] VITALS: BP 135/108
== END 2024-09-29 17:15 | disposition home or self-care (01) ==
LOC: ER 16:02
DX: T83.010A Breakdown (mechanical) of cystostomy catheter, initial encounter (principal); E11.9 Type 2 diabetes mellitus without complications; I10 Essential (primary) hypertension; Z91.013 Allergy to seafood; Z88.8 Allergy status to other drugs, medicaments and biological substances; Z79.84 Long term (current) use of oral hypoglycemic drugs; Z79.899 Other long term (current) drug therapy; Z79.2 Long term (current) use of antibiotics
CPT/HCPCS: 99283

== ENCOUNTER 2024-10-31 00:12 | Day surgery (SDC) | payer OTHER ==
[2024-10-31] MEDS ORDERED: Lidocaine HCl 4% Cream 5 GM ONE (07:46)
== END 2024-10-31 23:00 | disposition home or self-care (01) ==
LOC: WOUND 00:12
DX: E11.622 Type 2 diabetes mellitus with other skin ulcer (principal); L97.822 Non-pressure chronic ulcer of other part of left lower leg with fat layer exposed; L97.812 Non-pressure chronic ulcer of other part of right lower leg with fat layer exposed; L89.892 Pressure ulcer of other site, stage 2; G82.50 Quadriplegia, unspecified; Z72.0 Tobacco use; Z89.512 Acquired absence of left leg below knee; Z89.511 Acquired absence of right leg below knee
CPT/HCPCS: A6213; A9270

== ENCOUNTER 2024-11-07 02:50 | Day surgery (SDC) | payer OTHER ==
[2024-11-07] MEDS ORDERED: Lidocaine HCl 4% Cream 5 GM ONE (07:53)
== END 2024-11-07 23:39 | disposition home or self-care (01) ==
LOC: WOUND 02:50
DX: E11.622 Type 2 diabetes mellitus with other skin ulcer (principal); L97.822 Non-pressure chronic ulcer of other part of left lower leg with fat layer exposed; L97.812 Non-pressure chronic ulcer of other part of right lower leg with fat layer exposed; L89.892 Pressure ulcer of other site, stage 2; Z89.511 Acquired absence of right leg below knee; Z89.512 Acquired absence of left leg below knee; Z72.0 Tobacco use
CPT/HCPCS: A6213; A9270

== ENCOUNTER 2024-11-14 01:37 | Day surgery (SDC) | payer OTHER ==
[2024-11-14] MEDS ORDERED: Lidocaine HCl 4% Cream 5 GM ONE (07:46)
== END 2024-11-14 23:00 | disposition home or self-care (01) ==
LOC: WOUND 01:37
DX: E11.622 Type 2 diabetes mellitus with other skin ulcer (principal); L97.822 Non-pressure chronic ulcer of other part of left lower leg with fat layer exposed; L97.812 Non-pressure chronic ulcer of other part of right lower leg with fat layer exposed; Z89.511 Acquired absence of right leg below knee; Z89.512 Acquired absence of left leg below knee; Z72.0 Tobacco use
CPT/HCPCS: A6213; A9270

== ENCOUNTER 2024-12-05 00:30 | Day surgery (SDC) | payer OTHER ==
[2024-12-05] MEDS ORDERED: Lidocaine HCl 4% Cream 5 GM ONE (07:35)
== END 2024-12-05 23:00 | disposition home or self-care (01) ==
LOC: WOUND 00:30
DX: E11.622 Type 2 diabetes mellitus with other skin ulcer (principal); L97.822 Non-pressure chronic ulcer of other part of left lower leg with fat layer exposed; L89.892 Pressure ulcer of other site, stage 2; L97.812 Non-pressure chronic ulcer of other part of right lower leg with fat layer exposed; G82.50 Quadriplegia, unspecified; Z89.512 Acquired absence of left leg below knee; Z89.511 Acquired absence of right leg below knee; Z72.0 Tobacco use
CPT/HCPCS: A6213; A9270

== ENCOUNTER 2024-12-12 10:50 | Day surgery (SDC) | payer OTHER ==
[~2024-12-12 10:50] MED LIST changes: +Lidocaine HCl 4% Cream 5 GM ONE
== END 2024-12-12 23:00 | disposition home or self-care (01) ==
LOC: WOUND 10:50
DX: E11.622 Type 2 diabetes mellitus with other skin ulcer (principal); L97.822 Non-pressure chronic ulcer of other part of left lower leg with fat layer exposed; L97.812 Non-pressure chronic ulcer of other part of right lower leg with fat layer exposed; Z89.511 Acquired absence of right leg below knee; Z89.512 Acquired absence of left leg below knee; Z72.0 Tobacco use
CPT/HCPCS: A6213; A9270

== ENCOUNTER 2025-01-02 00:01 | Day surgery (SDC) | payer OTHER ==
[~2025-01-02 00:01] MED LIST changes: -Lidocaine HCl 4% Cream 5 GM ONE
[2025-01-02] MEDS ORDERED: Lidocaine HCl 4% Cream 5 GM ONE (07:57)
== END 2025-01-02 23:00 | disposition home or self-care (01) ==
LOC: WOUND 00:01
DX: E11.622 Type 2 diabetes mellitus with other skin ulcer (principal); L97.822 Non-pressure chronic ulcer of other part of left lower leg with fat layer exposed; L89.892 Pressure ulcer of other site, stage 2; G82.50 Quadriplegia, unspecified; Z89.512 Acquired absence of left leg below knee; Z89.511 Acquired absence of right leg below knee; Z72.0 Tobacco use
CPT/HCPCS: A6213; A9270; G0463

== ENCOUNTER 2025-01-09 00:52 | Day surgery (SDC) | payer OTHER ==
[2025-01-09] MEDS ORDERED: Lidocaine HCl 4% Cream 5 GM ONE (08:07)
== END 2025-01-09 23:00 | disposition home or self-care (01) ==
LOC: WOUND 00:52
DX: E11.622 Type 2 diabetes mellitus with other skin ulcer (principal); L89.892 Pressure ulcer of other site, stage 2; L98.492 Non-pressure chronic ulcer of skin of other sites with fat layer exposed; Z89.512 Acquired absence of left leg below knee; Z89.511 Acquired absence of right leg below knee; I10 Essential (primary) hypertension; J44.9 Chronic obstructive pulmonary disease, unspecified
CPT/HCPCS: A6213; A9270

== ENCOUNTER 2025-01-16 00:23 | Day surgery (SDC) | payer OTHER ==
[2025-01-16] MEDS ORDERED: Lidocaine HCl 4% Cream 5 GM ONE (07:50)
== END 2025-01-16 23:00 | disposition home or self-care (01) ==
LOC: WOUND 00:23
DX: E11.622 Type 2 diabetes mellitus with other skin ulcer (principal); L97.822 Non-pressure chronic ulcer of other part of left lower leg with fat layer exposed; L89.892 Pressure ulcer of other site, stage 2; G82.50 Quadriplegia, unspecified; G61.0 Guillain-Barre syndrome; Z72.0 Tobacco use; Z89.512 Acquired absence of left leg below knee; Z89.511 Acquired absence of right leg below knee
CPT/HCPCS: A6213; A9270; G0463

== ENCOUNTER 2025-01-23 02:35 | Day surgery (SDC) | payer OTHER ==
[2025-01-23] MEDS ORDERED: Lidocaine HCl 4% Cream 5 GM ONE (07:38)
== END 2025-01-23 23:00 | disposition home or self-care (01) ==
LOC: WOUND 02:35
DX: E11.622 Type 2 diabetes mellitus with other skin ulcer (principal); L97.822 Non-pressure chronic ulcer of other part of left lower leg with fat layer exposed; Z89.511 Acquired absence of right leg below knee; Z89.512 Acquired absence of left leg below knee
CPT/HCPCS: A6213; A9270; G0463

== ENCOUNTER 2025-02-03 07:26 | Day surgery (SDC) | payer OTHER ==
[~2025-02-03] VITALS: Ht 152.4 cm; Wt 114.3 kg
[~2025-02-03 07:26] MED LIST changes: +Aspir 8181 MG PO; +Balanced Salt Epinephrine Irrigation Solution 500 mL IR SCH; +GLYBURIDE5 M1 PO; +HYDPAM50 PO; +LISINOPRIL-HCT1 EAC1; +Moxifloxacin HCL 0.5 MG/0.1 ML 0.4MLSYR LEFTEYE SCH; +NOVOLOG FL100 UNIT/3; +NS 500 ML IV ONE; +Norco 5-325 Ta1 EACH PO; +PHENYLEPHRINE\\TROPICAMIDE\\TETRACAINE OPHTHALMIC DILATING SOLN LEFTEYE PRN; +Povidone-Iodine 450 DROP/30 ML Solution LEFTEYE SCH; +Povidone-Iodine 450 DROP/30 ML Solution ONE; +Tetracaine HCl/Pf 0.5% Opth Soln 4 ml ONE
[2025-02-03] MEDS ORDERED: Midazolam HCl 1MG / ML 2ML Vial ONE (08:06)
[2025-02-03] MEDS ORDERED: FentaNYL Citrate 50 MCG/ML 2 ML Injection ONE (08:06)
[2025-02-03] MEDS ORDERED: Ipratropium/Albuterol SulF 2.5-0.5MG/3 ML Amp ONE (08:24)
[2025-02-03] MEDS ORDERED: NS 500 ML IV ONE (08:44)
--- NOTE | 2025-02-03 09:15 | NUR ---
02/03/25 0915 Jennifer Hoskins IV IN RAC NOT RUNNING, NO SIGNS OF INFILTRATION. AFTER DISCUSSION WITH DR. ZHU AND DR. VERAS IT WAS DECIDED BY THE PT TO PROCEED WITH OUT RELAXING MEDICATION. THIS RN PREPARED TO START IV IF NEEDED
[2025-02-03 09:40] VITALS: BP 114/86
--- NOTE | 2025-02-03 10:05 | NUR ---
02/03/25 [id number] Cecilia Cuevas PT ARRIVED TO STEP DOWN IN STABLE CONDITION. PT HAS A ASSISTANT QUALITY MANAGER TELLEZ CATHETER. UPON ASSESSMENT URINARY BAG WAS LEAKING- WE FOUND A TEAR IN THE BAG, AND REPLACED IT WITH A NEW BAG. TELLEZ IS FLOWING AND BAG INTACT. NOTIFIED MD OF PT NOT HAVING EYE DROPS OK TO DISCHARGE. PT WILL CONSULTING SALES MANAGER DROPS TOMORROW AT APPT WITH DR. ZHU. PT HAD TYLENOL FOR MILD DISCOMFORT 2/10,NOW DISCOMFORT IS 1/10 AND ACCEPTABLE FOR PT.
== END 2025-02-03 10:16 | disposition home or self-care (01) ==
LOC: ORSCSDS 07:26
PROVIDERS: Student in an Organized Health Care Education/Training Program
PROC: 08RK3JZ Replacement of Left Lens with Synthetic Substitute, Percutaneous Approach (ICD-10-PCS; principal; 2025-02-03 09:00)
DX: E11.36 Type 2 diabetes mellitus with diabetic cataract (principal); H25.813 Combined forms of age-related cataract, bilateral; H21.81 Floppy iris syndrome; I10 Essential (primary) hypertension; E78.5 Hyperlipidemia, unspecified; G47.33 Obstructive sleep apnea (adult) (pediatric); K21.9 Gastro-esophageal reflux disease without esophagitis; J45.909 Unspecified asthma, uncomplicated; Z68.42 Body mass index [BMI] 45.0-49.9, adult; Z79.82 Long term (current) use of aspirin; Z79.85 Long-term (current) use of injectable non-insulin antidiabetic drugs; Z79.4 Long term (current) use of insulin; Z79.84 Long term (current) use of oral hypoglycemic drugs; Z79.899 Other long term (current) drug therapy
CPT/HCPCS: 82947; A9270; J2250; J3010; J7040; V2632

== ENCOUNTER 2025-02-10 07:57 | Day surgery (SDC) | payer OTHER ==
[~2025-02-10] VITALS: Ht 152.4 cm; Wt 114.3 kg
[~2025-02-10 07:57] MED LIST changes: -Moxifloxacin HCL 0.5 MG/0.1 ML 0.4MLSYR LEFTEYE SCH; +Moxifloxacin HCL 0.5 MG/0.1 ML 0.4MLSYR RIGHTEYE SCH; -PHENYLEPHRINE\\TROPICAMIDE\\TETRACAINE OPHTHALMIC DILATING SOLN LEFTEYE PRN; +PHENYLEPHRINE\\TROPICAMIDE\\TETRACAINE OPHTHALMIC DILATING SOLN RIGHTEYE PRN; -Povidone-Iodine 450 DROP/30 ML Solution LEFTEYE SCH; +Povidone-Iodine 450 DROP/30 ML Solution RIGHTEYE SCH
--- NOTE | 2025-02-10 09:27 | NUR ---
02/10/25 0927 Perla Miller IN AT 0911 RONALD IN AT [phone]
[2025-02-10] MEDS ORDERED: NS 500 ML IV ONE (09:34)
[2025-02-10] MEDS ORDERED: Tetracaine HCl 0.5% Opth Soln 15 ml RIGHTEYE ONE (09:39)
--- NOTE | 2025-02-10 09:44 | NUR ---
02/10/25 0944 Lali Hawkins PT DRANK MILK THIS AM. DR GAUTHIER IN TO SPEAK WITH PATIENT. PT IS OK CONTINUING WITHOUT SEDATION & NURSE MONITOR. DR. POTTER & DR. GAUTHIER OK TO CONTINUE WITH THIS PLAN OF CARE.
[2025-02-10 09:59] VITALS: BP 129/96
--- NOTE | 2025-02-10 10:33 | NUR ---
02/10/25 1033 Jean Camarillo PT REPORTED R EYE LID NOT FULLY CLOSING. DR. ZHU NOTIFIED AND EXAMINED PT.
== END 2025-02-10 10:20 | disposition home or self-care (01) ==
LOC: ORSCSDS 07:57
PROVIDERS: Student in an Organized Health Care Education/Training Program
PROC: 08RJ3JZ Replacement of Right Lens with Synthetic Substitute, Percutaneous Approach (ICD-10-PCS; principal; 2025-02-10 09:30)
DX: E11.36 Type 2 diabetes mellitus with diabetic cataract (principal); H25.811 Combined forms of age-related cataract, right eye; Z96.1 Presence of intraocular lens; I10 Essential (primary) hypertension; E78.5 Hyperlipidemia, unspecified; K21.9 Gastro-esophageal reflux disease without esophagitis; G47.33 Obstructive sleep apnea (adult) (pediatric); Z79.82 Long term (current) use of aspirin; Z79.85 Long-term (current) use of injectable non-insulin antidiabetic drugs; Z79.84 Long term (current) use of oral hypoglycemic drugs; Z79.4 Long term (current) use of insulin; Z79.899 Other long term (current) drug therapy; F17.210 Nicotine dependence, cigarettes, uncomplicated
CPT/HCPCS: 82947; J7040; V2632

== ENCOUNTER 2025-02-13 02:33 | Day surgery (SDC) | payer OTHER ==
[~2025-02-13 02:33] MED LIST changes: -Balanced Salt Epinephrine Irrigation Solution 500 mL IR SCH; -Moxifloxacin HCL 0.5 MG/0.1 ML 0.4MLSYR RIGHTEYE SCH; -NS 500 ML IV ONE; -PHENYLEPHRINE\\TROPICAMIDE\\TETRACAINE OPHTHALMIC DILATING SOLN RIGHTEYE PRN; -Povidone-Iodine 450 DROP/30 ML Solution ONE; -Povidone-Iodine 450 DROP/30 ML Solution RIGHTEYE SCH; -Tetracaine HCl/Pf 0.5% Opth Soln 4 ml ONE
[2025-02-13] MEDS ORDERED: Lidocaine HCl 4% Cream 5 GM ONE (07:48)
== END 2025-02-13 23:00 | disposition home or self-care (01) ==
LOC: WOUND 02:33
DX: E11.622 Type 2 diabetes mellitus with other skin ulcer (principal); L89.892 Pressure ulcer of other site, stage 2; L97.822 Non-pressure chronic ulcer of other part of left lower leg with fat layer exposed; L97.812 Non-pressure chronic ulcer of other part of right lower leg with fat layer exposed; Z89.511 Acquired absence of right leg below knee; Z89.512 Acquired absence of left leg below knee
CPT/HCPCS: A6213; A9270

== ENCOUNTER 2025-02-20 06:37 | Day surgery (SDC) | payer OTHER ==
[2025-02-20] MEDS ORDERED: Lidocaine HCl 4% Cream 5 GM ONE (07:46)
== END 2025-02-20 23:00 | disposition home or self-care (01) ==
LOC: WOUND 06:37
DX: E11.622 Type 2 diabetes mellitus with other skin ulcer (principal); L97.822 Non-pressure chronic ulcer of other part of left lower leg with fat layer exposed; L97.812 Non-pressure chronic ulcer of other part of right lower leg with fat layer exposed; Z89.511 Acquired absence of right leg below knee; Z89.512 Acquired absence of left leg below knee
CPT/HCPCS: A6213; A9270